=== PATIENT | female | born 1950 | race African-American/Black ===

== ENCOUNTER 2016-09-11 05:30 | Emergency (ER) | payer MEDICARE, OTHER ==
[2016-09-11 05:57] VITALS: BP 122/94
[2016-09-11 06:10] LABS: APPEARANCE,URINE CLEAR; BILIRUBIN,URINE NEGATIVE (NEGATIVE); GLUCOSE, URINE NEGATIVE (NEGATIVE); KETONES,URINE NEGATIVE (NEGATIVE); LEUKOCYTE ESTERASE,URINE NEGATIVE (NEGATIVE); NITRITE,URINE NEGATIVE (NEGATIVE); PROTEIN,URINE NEGATIVE (NEGATIVE); URINE SPECIFIC GRAVITY 1.005; UROBILINOGEN,URINE NEGATIVE mg/dL (<2.0)
[2016-09-11 06:15] LABS: ABSOLUTE BASOPHILS # (AUTO) 0.1 10^3/uL (0.0-0.2); ABSOLUTE EOSINOPHILS # (AUTO) 0.1 10^3/uL (0.0-0.6); ABSOLUTE LYMPHOCYTES (AUTO) 1.8 10^3/uL (0.5-4.7); ABSOLUTE MONOCYTES (AUTO) 0.6 10^3/uL (0.1-1.4); ABSOLUTE NEUT (AUTO) 4.9 10^3/uL (1.7-8.2); BASOPHILS % (AUTO) 0.9 % (0-2); EOSINOPHILS % (AUTO) 0.8 % (0-6); HEMATOCRIT 44.4 % (36.0-47.0); HEMOGLOBIN 14.8 g/dL (12.0-15.5); LYMPHOCYTES % (AUTO) 24.4 % (13-45); MEAN CORPUSCULAR HEMOGLOBIN 28.1 pg (27.0-33.4); MEAN CORPUSCULAR HGB CONC 33.3 g/dL (32.0-36.0); MEAN CORPUSCULAR VOLUME 84 fl (80-97); MONOCYTES % (AUTO) 8.2 % (3-13); RED BLOOD COUNT 5.28 10^6/uL (3.72-5.28); RED CELL DISTRIBUTION WIDTH 15.2 % (11.5-14.0); SEGMENTED NEUTROPHILS % (AUTO) 65.7 % (42-78); WHITE BLOOD COUNT 7.5 10^3/uL (4.0-10.5)
--- NOTE | 2016-09-11 06:17 | ER Document Report ---
ED General - General Chief Complaint: Headache Stated Complaint: HEADACHE TRAVEL OUTSIDE OF THE [place] IN LAST 30 DAYS: No - HPI Patient complains to provider of: head heaviness Notes: Patient coming in for evaluation of head heaviness ongoing for the last 6 months. According to nursing notes patient was very anxious upon her arrival pacing around the room. Upon my evaluation patient is resting comfortably lying on her left side asleep in the stretcher. Patient denies any trauma denies nausea vomiting blurred vision dizziness. Patient able to sit up in bed for examination. Denies fevers chills. Patient states chronic heaviness ongoing for the last 6 months. No change in her symptoms. She states that she has been compliant with her medications. - Related Data Allergies/Adverse Reactions: Sulfa (Sulfonamide Antibiotics) Allergy (Verified 08/11/16 11:28) Past Medical History - Social History Smoking Status: Unknown if Ever Smoked Family History: None, Reviewed & Not Pertinent - Past Medical History Cardiac Medical History: Reports: Hx Hypercholesterolemia, Hx Hypertension Pulmonary Medical History: Reports: Hx Asthma, Hx Bronchitis, Hx COPD Endocrine Medical History: Reports: Hx Diabetes Mellitus Type 2 Malignancy Medical History: Reports: Hx Breast Cancer GI Medical History: Reports: Hx Gastroesophageal Reflux Disease Musculoskeltal Medical History: Reports Hx Arthritis Psychiatric Medical History: Reports: Hx Anxiety, Hx Depression, Hx Schizophrenia Past Surgical History: Reports: Hx Breast Surgery - lumpectomy to left breast, Hx Cholecystectomy, Hx Hysterectomy, Hx Orthopedic Surgery - Immunizations Hx Diphtheria, Pertussis, Tetanus Vaccination: Yes Hx Pneumococcal Vaccination: 09/05/00 Review of Systems - Review of Systems Constitutional: No symptoms reported EENT: No symptoms reported Cardiovascular: No symptoms reported Respiratory: No symptoms reported Gastrointestinal: No symptoms reported Genitourinary: No symptoms reported Female Genitourinary: No symptoms reported Musculoskeletal: No symptoms reported Skin: No symptoms reported Hematologic/Lymphatic: No symptoms reported Neurological/Psychological: Headaches - Head heaviness -: Yes All other systems reviewed and negative Physical Exam - Vital signs Vitals: Temp Pulse Resp BP Pulse Ox 97.5 F 101 H 24 H 122/94 H 100 09/11/16 05:56 09/11/16 05:56 09/11/16 05:56 09/11/16 05:56 09/11/16 05:56 Interpretation: Normal - General General appearance: Appears well, Alert - HEENT Head: Normocephalic, Atraumatic Eyes: Normal Conjunctiva: Normal Cornea: Normal Extraocular movements intact: Yes Eyelashes: Normal Pupils: PERRL Anterior chamber: Normal Fundascopic: Normal Mouth/Lips: Normal Neck: Normal - Respiratory Respiratory status: No respiratory distress Chest status: Nontender Breath sounds: Normal Chest palpation: Normal - Cardiovascular Rhythm: Regular Heart sounds: Normal auscultation Murmur: No - Abdominal Inspection: Normal Distension: No distension Bowel sounds: Normal Tenderness: Nontender Organomegaly: No organomegaly - Back Back: Normal, Nontender - Extremities General upper extremity: Normal inspection, Nontender, Normal color, Normal ROM , Normal temperature General lower extremity: Normal inspection, Nontender, Normal color, Normal ROM , Normal temperature, Normal weight bearing. 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 This time patient has no emergent criteria. More likely patient will be discharged home. 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 The patient is neurologically intact. Given the extremely low risk of these diagnoses further testing and evaluation for these possibilities does not appear to be indicated at this time. The patient has been instructed to return if the symptoms worsen or change in any way.. - Vital Signs Vital signs: Temp Pulse Resp BP Pulse Ox 97.5 F 101 H 24 H 122/94 H 100 09/11/16 05:56 09/11/16 05:56 09/11/16 05:56 09/11/16 05:56 09/11/16 05:56 - Laboratory Result Diagrams: 09/11/16 05:45 09/11/16 05:45 Laboratory results interpreted by me: 09/11/16 09/11/16 09/11/16 05:45 05:45 05:46 RDW 15.2 H Glucose 134 H Urine Blood SMALL H Discharge - Discharge Clinical Impression: head heaviness Headache Qualifiers: Headache type: unspecified Headache chronicity pattern: unspecified pattern Intractability: not intractable Qualified Code(s): R51 - Headache Condition: Good Disposition: HOME, SELF-CARE Instructions: Headache ([facility]) Additional Instructions: Follow-up with your DrRomel for further evaluation. Please take your prescribe medications
[2016-09-11 06:20] LABS: ALANINE AMINOTRANSFERASE 28 U/L (9-52); ALBUMIN 4.2 g/dL (3.5-5.0); ALKALINE PHOSPHATASE 117 U/L (38-126); ANION GAP 9 (5-19); ASPARTATE AMINO TRANSFERASE 18 U/L (14-36); BILIRUBIN,TOTAL 0.6 mg/dL (0.2-1.3); BLOOD UREA NITROGEN 12 mg/dL (7-20); CALCIUM 9.9 mg/dL (8.4-10.2); CARBON DIOXIDE 27 mmol/L (22-30); CHLORIDE 106 mmol/L (98-107); GLUCOSE 134 mg/dL (75-110); POTASSIUM 4.7 mmol/L (3.6-5.0); SODIUM 142.3 mmol/L (137-145); TOTAL PROTEIN 6.8 g/dL (6.3-8.2)
[2016-09-11] MEDS ORDERED: HYDROXYZINE PAMOATE 25 MG CAPSULE #4 (ER DISP) PO SCH (07:45)
== END 2016-09-11 07:45 | disposition home or self-care (01) ==
LOC: ER 05:30
DX: R51 Headache (principal); E78.00 Pure hypercholesterolemia, unspecified; I10 Essential (primary) hypertension; J45.909 Unspecified asthma, uncomplicated; J44.9 Chronic obstructive pulmonary disease, unspecified; E11.9 Type 2 diabetes mellitus without complications; K21.9 Gastro-esophageal reflux disease without esophagitis; Z85.3 Personal history of malignant neoplasm of breast; Z88.2 Allergy status to sulfonamides; Z90.710 Acquired absence of both cervix and uterus; Z90.49 Acquired absence of other specified parts of digestive tract
CPT/HCPCS: 99284; 36415; 85025; 80053; 81001; J3490

== ENCOUNTER 2016-09-18 12:47 | Emergency (ER) | payer MEDICARE, OTHER ==
[2016-09-18] MEDS ORDERED: LORAZEPAM INJ 2 MG/1 ML VIAL IV ONE (13:03)
--- NOTE | 2016-09-18 13:03 | ER Document Report ---
ED General - General Stated Complaint: ANXIETY Time seen by provider: 13:03 Mode of Arrival: Medic Information source: Patient Notes: 66-year-old female with a history of schizophrenia presents to the emergency room complaining of anxiety and diarrhea. TRAVEL OUTSIDE OF THE [place] IN LAST 30 DAYS: No - HPI Onset: Yesterday Onset/Duration: Gradual Quality of pain: No pain Severity: None Pain Level: Denies Associated symptoms: denies: Chills, Nonproductive cough, Productive cough, Fever, Shortness of breath Exacerbated by: Denies Relieved by: Denies Similar symptoms previously: No Recently seen / treated by doctor: No - Related Data Allergies/Adverse Reactions: Sulfa (Sulfonamide Antibiotics) Allergy (Verified 08/11/16 11:28) Past Medical History - General Information source: Patient - Social History Smoking Status: Never Smoker Cigarette use (# per day): No Chew tobacco use (# tins/day): No Frequency of alcohol use: None Drug Abuse: None Lives with: Family Family History: None, Reviewed & Not Pertinent Patient has suicidal ideation: No Patient has homicidal ideation: No - Past Medical History Cardiac Medical History: Reports: Hx Hypercholesterolemia, Hx Hypertension Pulmonary Medical History: Reports: Hx Asthma, Hx Bronchitis, Hx COPD Endocrine Medical History: Reports: Hx Diabetes Mellitus Type 2 Malignancy Medical History: Reports: Hx Breast Cancer GI Medical History: Reports: Hx Gastroesophageal Reflux Disease Musculoskeltal Medical History: Reports Hx Arthritis Psychiatric Medical History: Reports: Hx Anxiety, Hx Depression, Hx Schizophrenia Past Surgical History: Reports: Hx Breast Surgery - lumpectomy to left breast, Hx Cholecystectomy, Hx Hysterectomy, Hx Orthopedic Surgery - Immunizations Hx Diphtheria, Pertussis, Tetanus Vaccination: Yes Hx Pneumococcal Vaccination: 09/05/00 Review of Systems - Review of Systems Constitutional: denies: Chills, Fever EENT: No symptoms reported Cardiovascular: No symptoms reported Respiratory: No symptoms reported Gastrointestinal: No symptoms reported Genitourinary: No symptoms reported Female Genitourinary: No symptoms reported Musculoskeletal: No symptoms reported Skin: No symptoms reported Hematologic/Lymphatic: No symptoms reported Neurological/Psychological: See HPI Physical Exam - Vital signs Vitals: Temp Pulse Resp BP Pulse Ox 97.5 F 101 H 14 191/89 H 98 09/18/16 13:05 09/18/16 13:05 09/18/16 13:05 09/18/16 13:05 09/18/16 13:05 Notes: Physical exam: GENERAL: HEAD: Atraumatic, normocephalic. EYES: Pupils equal round and reactive to light, extraocular movements intact, sclera anicteric, conjunctiva are normal. ENT: TMs normal, nares patent, oropharynx clear without exudates. Moist mucous membranes. NECK: Normal range of motion, supple without lymphadenopathy or JVD. LUNGS: Breath sounds clear to auscultation bilaterally and equal. No wheezes rales or rhonchi. HEART: Regular rate and rhythm without murmurs, rubs or gallops. ABDOMEN: Soft, nontender, normoactive bowel sounds. No guarding, no rebound. No masses appreciated. EXTREMITIES: Normal range of motion, no pitting or edema. No clubbing or cyanosis. NEUROLOGICAL: Cranial nerves II through XII grossly intact. Normal speech, normal gait. PSYCH: Normal mood, normal affect. SKIN: Warm, Dry, normal turgor, no rashes or lesions noted. Course - Re-evaluation Re-evalutation: 09/18/16 20:12 Note: I reviewed the chart and she has had some hyponatremia in the past. Patient looks fine. I did give her some fluids and some Vistaril (which she wanted for her restless leg syndrome). She has been ambulating around the emergency room and would like to go. - Vital Signs Vital signs: Temp Pulse Resp BP Pulse Ox 98.4 F 109 H 18 119/90 H 100 09/18/16 17:37 09/18/16 17:37 09/18/16 17:37 09/18/16 17:37 09/18/16 17:37 - Laboratory Result Diagrams: 09/18/16 13:22 09/18/16 13:22 Laboratory results interpreted by me: 09/18/16 09/18/16 13:22 13:22 RDW 15.1 H Seg Neutrophils % 80.9 H Lymphocytes % 11.1 L Absolute Neutrophils 8.3 H Sodium 125.2 L Potassium 3.4 L Chloride 92 L Total Protein 6.2 L Discharge - Discharge Clinical Impression: anxiety, pre-hypertension Condition: Stable Disposition: HOME, SELF-CARE Instructions: Anxiety ([facility]) Additional Instructions: Recommendations: Rest, drink plenty of fluids. Follow-up with primary care doctor Continue current medicines Follow-up with your psychiatrist Forms: Elevated Blood Pressure Referrals: MAHSA SAMPSON DO [NO LOCAL MD] - Follow up in 3-5 days (For repeat blood pressure check)
[2016-09-18 13:39] LABS: ABSOLUTE BASOPHILS # (AUTO) 0.1 10^3/uL (0.0-0.2); ABSOLUTE LYMPHOCYTES (AUTO) 1.1 10^3/uL (0.5-4.7); ABSOLUTE MONOCYTES (AUTO) 0.7 10^3/uL (0.1-1.4); ABSOLUTE NEUT (AUTO) 8.3 10^3/uL (1.7-8.2); BASOPHILS % (AUTO) 0.7 % (0-2); EOSINOPHILS % (AUTO) 0.2 % (0-6); HEMATOCRIT 41.4 % (36.0-47.0); HEMOGLOBIN 13.5 g/dL (12.0-15.5); HGB HCT DIFFERENCE -0.9; LYMPHOCYTES % (AUTO) 11.1 % (13-45); MEAN CORPUSCULAR HEMOGLOBIN 27.9 pg (27.0-33.4); MEAN CORPUSCULAR HGB CONC 32.6 g/dL (32.0-36.0); MEAN CORPUSCULAR VOLUME 85 fl (80-97); MONOCYTES % (AUTO) 7.1 % (3-13); RED BLOOD COUNT 4.85 10^6/uL (3.72-5.28); RED CELL DISTRIBUTION WIDTH 15.1 % (11.5-14.0); SEGMENTED NEUTROPHILS % (AUTO) 80.9 % (42-78); WHITE BLOOD COUNT 10.3 10^3/uL (4.0-10.5)
[2016-09-18 14:05] LABS: ALANINE AMINOTRANSFERASE 26 U/L (9-52); ALBUMIN 3.5 g/dL (3.5-5.0); ALKALINE PHOSPHATASE 114 U/L (38-126); ANION GAP 9 (5-19); ASPARTATE AMINO TRANSFERASE 26 U/L (14-36); BILIRUBIN,TOTAL 0.3 mg/dL (0.2-1.3); BLOOD UREA NITROGEN 7 mg/dL (7-20); CALCIUM 8.7 mg/dL (8.4-10.2); CARBON DIOXIDE 24 mmol/L (22-30); CHLORIDE 92 mmol/L (98-107); CREATININE RESULT 0.57 mg/dL (0.52-1.25); GLUCOSE 105 mg/dL (75-110); POTASSIUM 3.4 mmol/L (3.6-5.0); SODIUM 125.2 mmol/L (137-145); TOTAL PROTEIN 6.2 g/dL (6.3-8.2)
[2016-09-18] MEDS ORDERED: HYDROXYZINE HCL INJ 50 MG/1 ML VIAL IM ONE (14:34)
[2016-09-18] MEDS ORDERED: NORMAL SALINE 1000 ML 1,000 ML IV PRN (14:36)
[2016-09-18] MEDS ORDERED: POTASSIUM CHLORIDE 20 MEQ/15 ML UDCUP PO ONE (14:36)
[2016-09-18 19:20] VITALS: BP 119/90
== END 2016-09-18 17:40 | disposition home or self-care (01) ==
LOC: ER 12:47
DX: F41.9 Anxiety disorder, unspecified (principal); I10 Essential (primary) hypertension; E78.00 Pure hypercholesterolemia, unspecified; J45.909 Unspecified asthma, uncomplicated; J44.9 Chronic obstructive pulmonary disease, unspecified; E11.9 Type 2 diabetes mellitus without complications; Z85.3 Personal history of malignant neoplasm of breast; K21.9 Gastro-esophageal reflux disease without esophagitis; Z88.2 Allergy status to sulfonamides; Z90.49 Acquired absence of other specified parts of digestive tract; Z90.710 Acquired absence of both cervix and uterus
CPT/HCPCS: 99283; 96372; 96361; 96374; 36415; 85025; 80053; J3490; J2060; A9270; J7030

== ENCOUNTER 2016-09-23 19:04 | Emergency (ER) | payer MEDICARE, OTHER ==
[2016-09-23] MEDS ORDERED: ALBUTEROL SULFATE 0.083% NEB 2.5 MG/3 ML AMPUL NEB ONE (19:20)
[2016-09-23 20:03] LABS: ABSOLUTE BASOPHILS # (AUTO) 0.1 10^3/uL (0.0-0.2); ABSOLUTE LYMPHOCYTES (AUTO) 0.8 10^3/uL (0.5-4.7); ABSOLUTE MONOCYTES (AUTO) 0.5 10^3/uL (0.1-1.4); ABSOLUTE NEUT (AUTO) 9.3 10^3/uL (1.7-8.2); BASOPHILS % (AUTO) 0.5 % (0-2); EOSINOPHILS % (AUTO) 0.4 % (0-6); HEMATOCRIT 42.2 % (36.0-47.0); HEMOGLOBIN 13.3 g/dL (12.0-15.5); HGB HCT DIFFERENCE -2.3; LYMPHOCYTES % (AUTO) 7.3 % (13-45); MEAN CORPUSCULAR HEMOGLOBIN 27.2 pg (27.0-33.4); MEAN CORPUSCULAR HGB CONC 31.5 g/dL (32.0-36.0); MEAN CORPUSCULAR VOLUME 87 fl (80-97); MONOCYTES % (AUTO) 4.6 % (3-13); RED BLOOD COUNT 4.88 10^6/uL (3.72-5.28); RED CELL DISTRIBUTION WIDTH 14.7 % (11.5-14.0); SEGMENTED NEUTROPHILS % (AUTO) 87.2 % (42-78); WHITE BLOOD COUNT 10.6 10^3/uL (4.0-10.5)
[2016-09-23 20:29] LABS: ALANINE AMINOTRANSFERASE 34 U/L (9-52); ALBUMIN 3.7 g/dL (3.5-5.0); ALKALINE PHOSPHATASE 100 U/L (38-126); ANION GAP 12 (5-19); ASPARTATE AMINO TRANSFERASE 24 U/L (14-36); BILIRUBIN,TOTAL 0.4 mg/dL (0.2-1.3); BLOOD UREA NITROGEN 11 mg/dL (7-20); CALCIUM 8.4 mg/dL (8.4-10.2); CARBON DIOXIDE 22 mmol/L (22-30); CHLORIDE 97 mmol/L (98-107); CREATINE KINASE 206 U/L (30-135); CREATININE RESULT 0.63 mg/dL (0.52-1.25); GLUCOSE 139 mg/dL (75-110); POTASSIUM 3.6 mmol/L (3.6-5.0); SODIUM 130.9 mmol/L (137-145); TOTAL PROTEIN 5.7 g/dL (6.3-8.2)
[2016-09-23 20:34] LABS: CREATINE KINASE MB 1.6 ng/mL (<4.55); TROPONIN I 0.021 ng/mL
[2016-09-23 20:48] LABS: APPEARANCE,URINE CLEAR; BILIRUBIN,URINE NEGATIVE (NEGATIVE); GLUCOSE, URINE NEGATIVE (NEGATIVE); KETONES,URINE NEGATIVE (NEGATIVE); LEUKOCYTE ESTERASE,URINE NEGATIVE (NEGATIVE); NITRITE,URINE NEGATIVE (NEGATIVE); PROTEIN,URINE NEGATIVE (NEGATIVE); URINE SPECIFIC GRAVITY 1.002; UROBILINOGEN,URINE NEGATIVE mg/dL (<2.0)
[2016-09-23 20:57] LABS: URINE BARBITURATES SCREEN NEGATIVE; URINE METHADONE SCREEN NEGATIVE; URINE PHENCYCLIDINE SCREEN NEGATIVE
[2016-09-23 21:07] LABS: VENOUS BLOOD BASE EXCESS 0.6 mmol/L; VENOUS BLOOD HCO3 27.4 mmol/L (20-32); VENOUS BLOOD PCO2 52.3 mmHg (35-63); VENOUS BLOOD PH 7.34 (7.30-7.42)
[2016-09-23 22:02] VITALS: BP 111/90
--- NOTE | 2016-09-23 22:24 | ER Document Report ---
ED General - General Chief Complaint: Respiratory Distress Stated Complaint: RESPIRATORY DISTRESS TRAVEL OUTSIDE OF THE [place] IN LAST 30 DAYS: No - HPI Patient complains to provider of: COPD exacerbation Notes: Patient was found by EMS in some respiratory distress mild/moderate with SPO2 of 84 EMS house was heavily filled with smoke patient does admit to smoking very heavily today. Patient does have a history of COPD. Patient was given 2 nebulizer treatments prior to arrival and it the steroids upon her arrival here patient's respiratory rate oxygenation were within normal limits. Patient was in no signs of her story stress able to lie on her back in a comfortable position. Patient denies any recent travel denies any pain in her head chest abdomen. Denies any fevers chills nausea vomiting. Patient states feeling much better after breathing treatments given by EMS. - Related Data Allergies/Adverse Reactions: Sulfa (Sulfonamide Antibiotics) Allergy (Verified 08/11/16 11:28) Past Medical History - Social History Smoking Status: Current Every Day Smoker Family History: None, Reviewed & Not Pertinent - Past Medical History Cardiac Medical History: Reports: Hx Hypercholesterolemia, Hx Hypertension Pulmonary Medical History: Reports: Hx Asthma, Hx Bronchitis, Hx COPD Endocrine Medical History: Reports: Hx Diabetes Mellitus Type 2 Malignancy Medical History: Reports: Hx Breast Cancer GI Medical History: Reports: Hx Gastroesophageal Reflux Disease Musculoskeltal Medical History: Reports Hx Arthritis Psychiatric Medical History: Reports: Hx Anxiety, Hx Depression, Hx Schizophrenia Past Surgical History: Reports: Hx Breast Surgery - lumpectomy to left breast, Hx Cholecystectomy, Hx Hysterectomy, Hx Orthopedic Surgery - Immunizations Hx Diphtheria, Pertussis, Tetanus Vaccination: Yes Hx Pneumococcal Vaccination: 09/05/00 Review of Systems - Review of Systems Constitutional: No symptoms reported EENT: No symptoms reported Cardiovascular: No symptoms reported Respiratory: Cough, Short of breath, Wheezing Gastrointestinal: No symptoms reported Genitourinary: No symptoms reported Female Genitourinary: No symptoms reported Musculoskeletal: No symptoms reported Skin: No symptoms reported Hematologic/Lymphatic: No symptoms reported Neurological/Psychological: No symptoms reported -: Yes All other systems reviewed and negative Physical Exam - Vital signs Vitals: Resp Pulse Ox 21 H 96 09/23/16 19:34 09/23/16 19:34 Interpretation: Normal - General General appearance: Appears well, Alert - HEENT Head: Normocephalic, Atraumatic Eyes: Normal Pupils: PERRL - Respiratory Respiratory status: No respiratory distress Chest status: Nontender Breath sounds: Rhonchi, Wheezing Chest palpation: Normal - Cardiovascular Rhythm: Regular Heart sounds: Normal auscultation Murmur: No - Abdominal Inspection: Normal Distension: No distension Bowel sounds: Normal Tenderness: Nontender Organomegaly: No organomegaly - Back Back: Normal, Nontender - Extremities General upper extremity: Normal inspection, Nontender, Normal color, Normal ROM , Normal temperature General lower extremity: Normal inspection, Nontender, Normal color, Normal ROM , Normal temperature, Normal weight bearing. No: Misty's sign - Neurological Neuro grossly intact: Yes Cognition: Normal Orientation: AAOx4 Aurelio Coma Scale Eye Opening: Spontaneous Aurelio Coma Scale Verbal: Oriented Waterflow Coma Scale Motor: Obeys Commands Aurelio Coma Scale Total: 15 Speech: Normal Motor strength normal: LUE, RUE, LLE, RLE Sensory: Normal - Psychological Associated symptoms: Normal affect, Normal mood - Skin Skin Temperature: Warm Skin Moisture: Dry Skin Color: Normal Course - Re-evaluation Re-evalutation: 09/23/16 23:12 Patient was evaluated here in the ER. No critical etiology seen patient's never had any further hypoxia patient was ambulated around the ER with no signs of hypoxia no more story rate. At this time patient has been observed some period time did not fill patient be admitted patient agrees to plan will be discharged on the discharge home bronchodilators and prednisone. Patient's follow-up with her primary care physician patient was encouraged to stop smoking. - Vital Signs Vital signs: Temp Pulse Resp BP Pulse Ox 98.4 F 97 22 H 111/90 H 94 09/23/16 22:24 09/23/16 22:24 09/23/16 22:01 09/23/16 22:01 09/23/16 22:24 - Laboratory Result Diagrams: 09/23/16 19:47 09/23/16 19:47 Laboratory results interpreted by me: 09/23/16 09/23/16 09/23/16 19:47 19:47 20:15 WBC 10.6 H MCHC 31.5 L RDW 14.7 H Seg Neutrophils % 87.2 H Lymphocytes % 7.3 L Absolute Neutrophils 9.3 H Sodium 130.9 L Chloride 97 L Glucose 139 H Creatine Kinase 206 H Total Protein 5.7 L Urine Blood SMALL H Discharge - Discharge Clinical Impression: Tobacco abuse COPD (chronic obstructive pulmonary disease) Qualifiers: Chronic bronchitis type: unspecified Condition: Good Disposition: HOME, SELF-CARE Instructions: Chronic Obstructive Lung Disease ([facility]) Additional Instructions: Take medication as prescribed. Return to ER symptoms worsen. Prescriptions: Albuterol Sulfate [Proair HFA Inhalation Aerosol 8.5 gm MDI] 2 puff IH Q4H PRN # 1 mdi PRN Reason: Prednisone [Deltasone 20 mg Tablet] 60 mg PO DAILY 5 Days Forms: Smoking Cessation Education, Return to Work
--- NOTE | 2016-09-24 08:12 | EKG REPORT ---
SEVERITY:- ABNORMAL ECG - SINUS TACHYCARDIA ATRIAL PREMATURE COMPLEX PROBABLE LEFT ATRIAL ABNORMALITY LEFT ANTERIOR FASCICULAR BLOCK : Confirmed by: Jorge Alberto Barbosa MD 24-Sep-2016 08:11:25
== END 2016-09-23 22:34 | disposition home or self-care (01) ==
LOC: ER 19:04
DX: J44.9 Chronic obstructive pulmonary disease, unspecified (principal); F17.210 Nicotine dependence, cigarettes, uncomplicated; E78.00 Pure hypercholesterolemia, unspecified; I10 Essential (primary) hypertension; J45.909 Unspecified asthma, uncomplicated; E11.9 Type 2 diabetes mellitus without complications; K21.9 Gastro-esophageal reflux disease without esophagitis; Z85.3 Personal history of malignant neoplasm of breast; Z88.2 Allergy status to sulfonamides; Z90.49 Acquired absence of other specified parts of digestive tract; Z90.710 Acquired absence of both cervix and uterus
CPT/HCPCS: 93005; 94640; 99285; 36415; 82553; 82550; 85025; 80053; 81001; 84484; 80307; 82803; 71010; 93010; A9270

== ENCOUNTER 2016-11-22 14:38 | Emergency (ER) | payer MEDICARE, OTHER ==
--- NOTE | 2016-11-22 14:49 | ER Document Report ---
ED Medical Screen (RME) - General Stated Complaint: BREATHING PROBLEMS Time seen by provider: 14:47 Mode of Arrival: Medic Information source: Patient Notes: 66-year-old female presents to ED via EMS came to her for shortness of breath started after she smoked cigarettes temporary short of breath and wheezing. Gave her a breathing treatment as she usually does and he did not let complete the treatment or start an IV or do an EKG. She is to Make and wheezing according to EMS. I have greeted and performed a rapid initial assessment of this patient. A comprehensive ED assessment and evaluation of the patient, analysis of test results and completion of medical decision making process will be conducted by an additional ED providers. TRAVEL OUTSIDE OF THE [place] IN LAST 30 DAYS: No - Related Data Allergies/Adverse Reactions: Sulfa (Sulfonamide Antibiotics) Allergy (Verified 11/22/16 14:55) Past Medical History - Past Medical History Cardiac Medical History: Reports: Hx Hypercholesterolemia, Hx Hypertension Pulmonary Medical History: Reports: Hx Asthma, Hx Bronchitis, Hx COPD Endocrine Medical History: Reports: Hx Diabetes Mellitus Type 2 Malignancy Medical History: Reports: Hx Breast Cancer GI Medical History: Reports: Hx Gastroesophageal Reflux Disease Musculoskeltal Medical History: Reports Hx Arthritis Psychiatric Medical History: Reports: Hx Anxiety, Hx Depression, Hx Schizophrenia Past Surgical History: Reports: Hx Breast Surgery - lumpectomy to left breast, Hx Cholecystectomy, Hx Hysterectomy, Hx Orthopedic Surgery - Immunizations Hx Diphtheria, Pertussis, Tetanus Vaccination: Yes Physical Exam - Vital signs Vitals: Temp Pulse Resp BP Pulse Ox 97.7 F 110 H 28 H 149/103 H 93 11/22/16 14:53 11/22/16 14:53 11/22/16 14:53 11/22/16 14:53 11/22/16 14:53 Course - Vital Signs Vital signs: Temp Pulse Resp BP Pulse Ox 97.7 F 110 H 28 H 149/103 H 93 11/22/16 14:53 11/22/16 14:53 11/22/16 14:53 11/22/16 14:53 11/22/16 14:53 Doctor's Discharge - Discharge Disposition: AGAINST MEDICAL ADVICE
[2016-11-22 14:54] VITALS: BP 149/103
[2016-11-22] MEDS ORDERED: PREDNISONE 20 MG TABLET PO ONE (14:54)
[2016-11-22] MEDS: ALBUTEROL SULFATE 0.083% NEB 2.5 MG/3 ML AMPUL NEB SCH ×2 (15:15→15:32)
== END 2016-11-22 15:55 | disposition left against medical advice (07) ==
LOC: ER 14:38
DX: Z53.9 Procedure and treatment not carried out, unspecified reason (principal); R06.02 Shortness of breath; E78.00 Pure hypercholesterolemia, unspecified; I10 Essential (primary) hypertension; J44.9 Chronic obstructive pulmonary disease, unspecified; E11.9 Type 2 diabetes mellitus without complications; K21.9 Gastro-esophageal reflux disease without esophagitis; Z88.2 Allergy status to sulfonamides; Z85.3 Personal history of malignant neoplasm of breast; Z90.49 Acquired absence of other specified parts of digestive tract; Z90.710 Acquired absence of both cervix and uterus
CPT/HCPCS: 99281; A9270 ×2; J7512

== ENCOUNTER 2016-11-23 03:03 | Inpatient (IN) | payer MEDICARE, OTHER ==
[2016-11-23] MEDS ORDERED: ALPRAZOLAM 0.5 MG TABLET PO ONE (04:12)
[2016-11-23 05:06] LABS: ALANINE AMINOTRANSFERASE 38 U/L (9-52); ALBUMIN 4.6 g/dL (3.5-5.0); ALKALINE PHOSPHATASE 150 U/L (38-126); ANION GAP 14 (5-19); ASPARTATE AMINO TRANSFERASE 27 U/L (14-36); BILIRUBIN,DIRECT 0.1 mg/dL (0.0-0.4); BILIRUBIN,TOTAL 0.6 mg/dL (0.2-1.3); BLOOD UREA NITROGEN 9 mg/dL (7-20); CALCIUM 10.2 mg/dL (8.4-10.2); CARBON DIOXIDE 27 mmol/L (22-30); CHLORIDE 96 mmol/L (98-107); CREATININE RESULT 0.67 mg/dL (0.52-1.25); GLUCOSE 126 mg/dL (75-110); MAGNESIUM 1.5 mg/dL (1.6-2.3); POTASSIUM 3.5 mmol/L (3.6-5.0); SODIUM 136.9 mmol/L (137-145); TOTAL PROTEIN 7.3 g/dL (6.3-8.2)
[2016-11-23 05:10] LABS: HEMATOCRIT 43.7 % (36.0-47.0); HEMOGLOBIN 14.3 g/dL (12.0-15.5); HGB HCT DIFFERENCE -0.8; MEAN CORPUSCULAR HGB CONC 32.6 g/dL (32.0-36.0); MEAN CORPUSCULAR VOLUME 83 fl (80-97); RED BLOOD COUNT 5.28 10^6/uL (3.72-5.28); RED CELL DISTRIBUTION WIDTH 14.7 % (11.5-14.0); WHITE BLOOD COUNT 11.2 10^3/uL (4.0-10.5)
[2016-11-23 05:18] LABS: TROPONIN I < 0.012 ng/mL
--- NOTE | 2016-11-23 05:20 | ER Document Report ---
ED General - General Chief Complaint: Shortness Of Breath Stated Complaint: SHORTNESS OF BREATH Information source: Patient TRAVEL OUTSIDE OF THE [place] IN LAST 30 DAYS: No - HPI Notes: Patient presents with a history of chronic COPD and schizophrenia stating she's had progressive dyspnea and orthopnea over the last 2-3 months with increasing lower extremity swelling. She denies any chest pain. She was seen earlier yesterday was given a nebulizer treatment and 60 mg of prednisone but left prior to being fully evaluated. Patient has a previous echocardiogram from 2010 showed left ventricular ejection fraction 55% with left ventricular diastolic dysfunction. Patient has no known history of CHF. - Related Data Allergies/Adverse Reactions: Sulfa (Sulfonamide Antibiotics) Allergy (Verified 11/22/16 14:55) Past Medical History - General Information source: Patient - Social History Smoking Status: Current Every Day Smoker Cigarette use (# per day): Yes Smoking Education Provided: Yes Frequency of alcohol use: None Drug Abuse: None Family History: None, Reviewed & Not Pertinent - Past Medical History Cardiac Medical History: Reports: Hx Hypercholesterolemia, Hx Hypertension Pulmonary Medical History: Reports: Hx Asthma, Hx Bronchitis, Hx COPD Neurological Medical History: Endocrine Medical History: Reports: Hx Diabetes Mellitus Type 2 Renal/ Medical History: Denies: Hx Peritoneal Dialysis Malignancy Medical History: Reports: Hx Breast Cancer GI Medical History: Reports: Hx Gastroesophageal Reflux Disease Musculoskeltal Medical History: Reports Hx Arthritis Psychiatric Medical History: Reports: Hx Anxiety, Hx Depression, Hx Schizophrenia Infectious Medical History: Past Surgical History: Reports: Hx Breast Surgery - lumpectomy to left breast, Hx Cholecystectomy, Hx Hysterectomy, Hx Orthopedic Surgery - Immunizations Hx Diphtheria, Pertussis, Tetanus Vaccination: Yes Hx Pneumococcal Vaccination: 09/05/00 Review of Systems - Review of Systems Notes: REVIEW OF SYSTEMS: CONSTITUTIONAL : Denies fever, chills, or sweats. Denies recent illness. EENT: Denies eye, ear, throat, or mouth pain or symptoms. Denies nasal or sinus congestion or discharge. Denies throat, tongue, or mouth swelling or difficulty swallowing. CARDIOVASCULAR: Denies chest pain. Denies palpitations or racing or irregular heart beat. Patient reports ankle edema RESPIRATORY: Denies cough, cold, or chest congestion. Patient reports dyspnea with some wheezing. GASTROINTESTINAL: Denies abdominal pain or distention. Denies nausea, vomiting , or diarrhea. Denies blood in vomitus, stools, or per rectum. Denies black, tarry stools. Denies constipation. GENITOURINARY: Denies difficulty urinating, painful urination, burning, frequency, blood in urine, or discharge. FEMALE GENITOURINARY: Denies vaginal bleeding, heavy or abnormal periods, irregular periods. Denies vaginal discharge or odor. MUSCULOSKELETAL: Denies back or neck pain or stiffness. Denies joint pain or swelling. SKIN: Denies rash, lesions or sores. HEMATOLOGIC : Denies easy bruising or bleeding. LYMPHATIC: Denies swollen, enlarged glands. NEUROLOGICAL: Denies confusion or altered mental status. Denies passing out or loss of consciousness. Denies dizziness or lightheadedness. Denies headache. Denies weakness or paralysis or loss of use of either side. Denies problems with gait or speech. Denies sensory loss, numbness, or tingling. Denies seizures. PSYCHIATRIC: Denies anxiety or stress. Denies depression, suicidal ideation, or homicidal ideation. ALL OTHER SYSTEMS REVIEWED AND NEGATIVE. Dictation was performed using [employer] voice recognition software Physical Exam - Vital signs Vitals: Pulse Ox 96 11/23/16 04:20 - Notes Notes: PHYSICAL EXAMINATION: GENERAL: Well-appearing, well-nourished and in no acute distress. HEAD: Atraumatic, normocephalic. EYES: Pupils equal round and reactive to light, extraocular movements intact, conjunctiva are normal. ENT: Nares patent, oropharynx clear without exudates. Moist mucous membranes. NECK: Normal range of motion, supple without lymphadenopathy LUNGS: Coarse breath sounds appreciated bilaterally. There is very minimal wheeze. There are mid lung field rales noted. HEART: Regular rate and rhythm without murmurs ABDOMEN: Soft, nontender, nondistended abdomen. No guarding, no rebound. No masses appreciated. Female : deferred Musculoskeletal: Normal range of motion, No cyanosis. 2+ bilateral lower extremity pitting edema noted. No palpable cord. Negative Homans. NEUROLOGICAL: Cranial nerves grossly intact. Normal speech, normal gait. Normal sensory, motor exams PSYCH: Normal mood, normal affect. SKIN: Warm, Dry, normal turgor, no rashes or lesions noted. Course - Re-evaluation Re-evalutation: 11/23/16 06:41 Patient previously had received prednisone. The patient was given a DuoNeb without much improvement. The patient on oxygen would have saturations in the mid 90s with 2 L nasal cannula, but when taken off oxygen she would float down to 91-92% saturations and would become to 24-26 rate. The patient initially requested to leave after her breathing treatment, and she was encouraged to stay. On several occasions again she requested to leave. I discussed with the patient that there was concern for new onset congestive heart failure and that she would not improve, and she was in agreement with staying for further evaluation and care. Chest x-ray as interpreted by me did show some mild cephalization but no significant cardiomegaly. As compared to previous chest x-ray the cephalization and mild evidence for congestive heart failure was notable. Patient's BNP went up from 40 in 2013 to today's value greater than 3000. Patient was given Lasix 40 mg IV and was placed up on 1 inch of nitroglycerin paste. Discussion was undertaken with the hospitalist Dr. Lemos, and he agreed to admit the patient for further evaluation and management and care. Critical care time not counting billable procedures is 42 minutes. 11/23/16 06:44 - Vital Signs Vital signs: Temp Pulse Resp BP Pulse Ox 96 11/23/16 04:20 - Laboratory Result Diagrams: 11/23/16 04:37 11/23/16 04:37 Laboratory results interpreted by me: 11/23/16 11/23/16 11/23/16 04:37 04:37 04:37 WBC 11.2 H RDW 14.7 H Seg Neuts % (Manual) 90 H Band Neutrophils % 2 L Lymphocytes % (Manual) 6 L Monocytes % (Manual) 2 L Abs Neuts (Manual) 10.3 H Sodium 136.9 L Potassium 3.5 L Chloride 96 L Glucose 126 H Magnesium 1.5 L Alkaline Phosphatase 150 H NT-Pro-B Natriuret Pep 3130 H - EKG Interpretation by Me EKG shows normal: Sinus rhythm Additional EKG results interpreted by me: 11/23/16 05:19 EKG as interpreted by me showed sinus tachycardia heart rate of 126. There is no gross evidence for acute [place] or ischemia identified. There is no change from previous EKG reviewed from 09/23/16. Discharge - Discharge Clinical Impression: COPD (chronic obstructive pulmonary disease) CHF (congestive heart failure) Qualifiers: Congestive heart failure type: unspecified congestive heart failure type Congestive heart failure chronicity: acute Qualified Code(s): I50.9 - Heart failure, unspecified Disposition: ADMITTED INPATIENT Admitting Provider: Hospitalist Unit Admitted: Telemetry
[2016-11-23 05:26] LABS: BAND NEUTROPHILS % (MANUAL) 2 % (3-5); BASOPHILS % (MANUAL) 0 % (0-2); EOSINOPHILS % (MANUAL) 0 % (0-6); LYMPHOCYTES % (MANUAL) 6 % (13-45); TOTAL CELLS COUNTED 100
[2016-11-23 05:27] LABS: ANISOCYTOSIS SLIGHT; POIKILOCYTOSIS SLIGHT; TOXIC GRANULATION SLIGHT; TOXIC VACUOLATION PRESENT
[2016-11-23] MEDS ORDERED: NITROGLYCERIN 2% OINTMENT 1 GM PACKET TP ONE (05:42)
[2016-11-23] MEDS ORDERED: FUROSEMIDE INJ/PF 40 MG/4 ML SDV IV ONE (05:42)
[2016-11-23] MEDS ORDERED: POTASSIUM CHLORIDE 10 MEQ TABLET.SA PO ONE (05:48)
[2016-11-23] MEDS ORDERED: MAGNESIUM OXIDE 400 MG TABLET PO ONE (05:49)
[2016-11-23] MEDS ORDERED: OLANZAPINE INJ/PF 10 MG SDV IM ONE (06:13)
[2016-11-23] MEDS ORDERED: ACETAMINOPHEN 325 MG TABLET PO PRN (06:34)
[2016-11-23] MEDS ORDERED: HYDRALAZINE HCL INJ/PF 20 MG/1 ML SDV IV PRN (06:34)
[2016-11-23] MEDS ORDERED: GLUCAGON,HUMAN RECOMB 1 MG INJ IM PRN (06:35)
[2016-11-23] MEDS ORDERED: DEXTROSE 50%-WATER 25 GM/50 ML DISP.SYRIN IV PRN ×2 (06:35)
[2016-11-23] MEDS ORDERED: INSULIN LISPRO 100 UNIT/ML 3 ML VIAL SUBCUT PRN (06:35)
[2016-11-23] MEDS ORDERED: DEXTROSE 40% GEL 15 GM TUBE PO PRN ×2 (06:35)
[2016-11-23] MEDS ORDERED: NICOTINE 14 MG/24 HR PATCH.TD24 TD ONE (06:39)
[2016-11-23] MEDS: IPRATROPIUM/ALBUTEROL 0.5-2.5 MG/3 ML AMPUL NEB SCH ×2 (07:42→15:21)
--- NOTE | 2016-11-23 08:11 | EKG REPORT ---
SEVERITY:- ABNORMAL ECG - SINUS TACHYCARDIA LEFT ANTERIOR FASCICULAR BLOCK NONSPECIFIC LATERAL ST-T CHANGES. : Confirmed by: Jorge Alberto Barbosa MD 23-Nov-2016 08:10:26
[2016-11-23 08:50] LABS: CREATINE KINASE MB 2.23 ng/mL (<4.55)
[2016-11-23 08:57] LABS: TROPONIN I < 0.012 ng/mL
[2016-11-23] MEDS ORDERED: ENALAPRIL MALEATE 2.5 MG TABLET PO SCH (10:00)
[2016-11-23] MEDS ORDERED: ARIPIPRAZOLE 5 MG TABLET PO SCH (10:00)
[2016-11-23] MEDS: ALBUTEROL SULFATE 0.083% NEB 2.5 MG/3 ML AMPUL NEB PRN (11:13)
[2016-11-23] MEDS: PREDNISONE 20 MG TABLET PO SCH (13:58)
[2016-11-23] MEDS: POTASSIUM CHLORIDE 10 MEQ TABLET.SA PO SCH ×2 (13:58→22:37)
[2016-11-23] MEDS: DOCUSATE SODIUM 100 MG CAPSULE PO SCH (13:59)
[2016-11-23] MEDS: DOXYCYCLINE HYCLATE 100 MG TABLET PO SCH ×2 (13:59→22:37)
[2016-11-23] MEDS: FUROSEMIDE INJ/PF 20 MG/2 ML SDV IV SCH ×2 (14:00→22:32)
[2016-11-23] MEDS: FLUTICASONE NASAL SPRAY 50 MCG/SPRY 120 SPRAY/16 GM NASL SCH ×2 (14:01→22:37)
[2016-11-23] MEDS: HEPARIN SOD (PORCINE) 5,000 UNIT/ML 1 ML SYRINGE SUBCUT SCH ×2 (14:03→22:32)
--- NOTE | 2016-11-23 14:45 | Physician Advisory Note ---
Physician Advisor ProgressNote .: Pursuant to the plan for [facility], I have reviewed the medical record for this patient. Physician Advisor Statement: Possible documentation opportunities if attending agrees: 1. "Acute Hypoxemic Respiratory Failure with labored breathing, tachypnea, tachycardia, sats as low as 93% despite 3L O2, & need for Bipap" 2. "Acute ___ CHF" [diastolic? systolic & diastolic?] 3. ? - "mild acute hyponatremia due to acute CHF" 4. See below - status. As always, if concerned about any unstable VS or abnormal labs, please comment on them & note what doing about them, & please document each day the potential clinical problems you are concerned could occur if pt not kept in hospital for tx at this time. Discussion: 66yo female w/ chronic co-morbidities including COPD, asthma, tobacco dependence , HTN, DM-2, breast CA/lumpectomy, GERD, schizophrenia, depression, anxiety - presented 3AM to ED w/worsening SOB, BLE edema. Given neb & 60mg prednisone the day before in ED before she left (left before eval finished). DCP note states pt uses O2 at home that she gets via [facility]. However, when called to ask how much O2 she uses at baseline, she found: "They have no record of her getting O2 through them. She gets albuterol neb medication and diabetic meds through them." (+) HR 120, RR 25-32. WBC 11.2 (but got prednisone the day before), Na 136.9, K 3.5, Mag 1.5, BNP up from 40 to 3130, CK = 245 at 8AM, EKG = ST @125, ED gave her neb, Lasix 40 IV, NTP 1inch, Mag ox, KCL, po Xanax x1. Attending ordered O2 2L, Bipap, I/Os, daily wts, tele monitoring, serial cardiac enzymes, f/u labs, ECHO, doxy po, Duonebs q6h, albuterol prn, Lasix 20mg IV q12, KCL 20mg q12, Prednisone 40mg daily. Status: Pt with chronic hypoxemic respiratory failure on COPD/asthma, with HTN/DM/ ongoing tobacco abuse with prior diastolic dysfunction by ECHO, now here w/ apparent acute ___ type CHF. Tachycardic & tachypneic, despite Duoneb & then Lasix IV w/NTPaste tx in ED. By 7AM, per day shift ED nurse report to CANDIE Duarte, pt was on 2L O2 (sat 97% at 7AM, gives P/F ratio 393) but pt remained SOB. By 9AM, she required Bipap w/0.35 FiO2 (P/F ratio 306). At 10:17, sat was 93% on 2L nc (P/F ratio 243) Per nursing assessment at 10:41, she still had labored breathing, SOB at rest, wheezes, tachypnea, & sat only 93% on 3L O2 (=P/F ratio 213, whichis diagnostic of acute resp failure), leading to O2 being increased to 4L. At 11:32, pt even more tachycardic at 133, more tachypneic at 33, still labored breathing, w/sat 96% on 4L (P/F ratio 250). Elevated CKs, w/nl trop Is, likely related to increased work of breathing x hrs. Her electrolyte abnormalities may worsen with the diuretics & nebs needed. This pt is not responding appropriately & promptly to appropriate therapy, and has persistent tachycardia & tachypnea and increased work of breathing. She has high risk for additional adverse cardiac events due to increased cardiac workload & worsened hypoxemia on top of chronic cardiac risk factor co- morbidities. A typical acute CHF pt is appropriate for Outpt Obs status initially with change to Inpt the next day if not able to be safely d/c'd (Medicare), but this pt at this time appears to be extremely likely to require at least 2 MNs of hospital inpatient care to stabilize her condition such that she can be safely d /c'd given the issues above. If attending agrees, please document reasons/ concerns & may consider change to Inpatient status. Tx in inpatient hospital setting medically reasonable & necessary to protect pt' s health, safety, & medical condition? Thanks for your help with documentation accuracy/specificity improvement! Digna Jeronimo MD [facility] Physician Advisor, Fellow of Hospital Medicine
[2016-11-23] MEDS ORDERED: LORAZEPAM INJ 2 MG/1 ML VIAL IV PRN (15:08)
--- NOTE | 2016-11-23 17:06 | PDOC PROGRESS REPORT ---
Subjective Progress Note for:: 11/23/16 Subjective:: Patient has continued shortness of breath. Patient denies fever, chills, headache, new focal weakness, chest pain, abdominal pain, nausea, vomiting, diarrhea, constipation. Physical Exam Vital Signs: Temp Pulse Resp BP Pulse Ox 98.6 F 130 H 18 63/47 L 98 11/23/16 15:33 11/23/16 15:33 11/23/16 15:33 11/23/16 15:33 11/23/16 15:33 Intake & Output 11/22/16 11/23/16 11/24/16 06:59 06:59 06:59 Weight 77 kg GENERAL: No acute distress HEENT: Conjunctiva clear, nonicteric, moist mucous membranes, no JVD, midline trachea RESPIRATORY: Bilateral wheezes CARDIAC: Regular rate and rhythm, no murmurs/gallops/rubs ABDOMEN: Soft, nondistended, nontender, positive bowel sounds, no rebound, no guarding EXTREMETIES: 2+ bilateral lower extremity edema NEUROLOGIC: Alert, oriented to person/place/time, CN's grossly intact, no focal deficits SKIN: No rash, wounds PSYCH: Normal mood, unusual affect Results Laboratory Results: 11/23/16 11/23/16 08:04 08:04 Creatine Kinase 245 H CK-MB (CK-2) 2.23 Troponin I < 0.012 Impressions: Chest X-Ray 11/23/16 00:00 IMPRESSION: COPD. NO ACUTE RADIOGRAPHIC FINDING IN THE CHEST. Assessment & Plan - Diagnosis (1) CHF (congestive heart failure) Qualifiers: Congestive heart failure type: diastolic Congestive heart failure chronicity: acute Qualified Code(s): I50.31 - Acute diastolic (congestive ) heart failure Is this a current diagnosis for this admission?: YesPlan: Patient has acutely decompensated. Echocardiogram from 2010 showed diastolic dysfunction, EF 55%. Continue Lasix 20 mg IV every 12 hours. Monitor strict I/ O, daily weight. Repeat echocardiogram as it has been 6 years. Cardiac enzymes negative 2 sets. (2) COPD (chronic obstructive pulmonary disease) Is this a current diagnosis for this admission?: Yes (3) Schizophrenia Is this a current diagnosis for this admission?: YesPlan: Continue supportive care. Patient resides with family. (4) Hypertension Is this a current diagnosis for this admission?: YesPlan: When necessary IV hydralazine. Patient does not take any regular medications. (5) Diabetes Is this a current diagnosis for this admission?: YesPlan: Continue Tradjenta. Sliding scale insulin. (6) Tobacco abuse Is this a current diagnosis for this admission?: YesPlan: Nicotinic patch. - Time Time Spent with patient: 35 or more minutes
[2016-11-23 17:50] LABS: CREATINE KINASE MB 1.61 ng/mL (<4.55)
[2016-11-23 17:54] LABS: TROPONIN I < 0.012 ng/mL
[2016-11-23] MEDS: LANSOPRAZOLE 15 MG TAB.RAP.DR PO SCH (19:34)
[2016-11-23] MEDS: NICOTINE 14 MG/24 HR PATCH.TD24 TD SCH (19:34)
[2016-11-23] MEDS: ALBUTEROL SULFATE 0.083% NEB 2.5 MG/3 ML AMPUL NEB SCH (19:43)
--- NOTE | 2016-11-23 20:29 | XCELERA REPORT ---
[address] [address] Transthoracic Echocardiogram Report Name: ALEJANDRA CHENG Age: 66 yrs Gender: Female : 1950 Patient Status: Inpatient Patient Location: 5\[id number]\532\S\A Study Date: 11/23/2016 02:39 PM Height: 64 in Weight: 169 lb BSA: 1.8 m2 Procedure: A complete two-dimensional transthoracic echocardiogram was performed (2D, M-mode, spectral and color flow Doppler). The study was technically adequate with some images being suboptimal in quality. Reason For Study: systolic murmur Ordering Physician: BECCA PLATA Performed By: Soo Rodriguez Interpretation Summary The left ventricular ejection fraction is normal. There is mild concentric left ventricular hypertrophy. The left ventricle is grossly normal size. Doppler measurements suggest pseudonormalized left ventricular relaxation, which is associated with grade II/IV or mild to moderate diastolic dysfunction Wall motion cannot be accurately commented on, but no definite regional wall motion abnormalities noted. The right ventricular systolic function is normal. The right atrium is mildly dilated. The left atrium is borderline dilated. There is a trace amount of mitral regurgitation There is no mitral valve stenosis. There is a trace to mild amount of aortic regurgitation There is no aortic valve stenosis There is a trace to mild amount of tricuspid regurgitation There is mild pulmonary hypertension by echo Right ventricular systolic pressure is estimated to be elevated at 30- 40mmHg. The aortic root is not well visualized but is probably normal size. The inferior vena cava appeared normal and decreased > 50% with respiration (RAP 5-10 mmHg) There is no pericardial effusion. MMode/2D Measurements \T\ Calculations RVDd: 3.5 cm LVIDd: 4.7 cm FS: 45.0 % Ao root diam: 2.8 cm IVSd: 1.0 cm LVIDs: 2.6 cm EDV(Teich): 100.5 ml LVPWd: 1.0 cm ESV(Teich): 23.8 ml Ao root area: 6.1 cm2 EF(Teich): 76.3 % LA dimension: 2.7 cm Doppler Measurements \T\ Calculations MV E max alphonso: MV P1/2t max alphonso: Ao V2 max: LV V1 max P.0 cm/sec 74.0 cm/sec 140.6 cm/sec 5.5 mmHg MV A max alphonso: MV P1/2t: 42.4 msec Ao max PG: LV V1 max: 149.9 cm/sec 7.9 mmHg 117.2 cm/sec MV E/A: 0.49 MVA(P1/2t): 5.2 cm2 MV dec slope: 511.4 cm/sec2 MV dec time: 0.14 sec PA V2 max: 140.5 cm/sec PA max P.9 mmHg Left Ventricle The left ventricle is grossly normal size. There is mild concentric left ventricular hypertrophy. The left ventricular ejection fraction is normal. Doppler measurements suggest pseudonormalized left ventricular relaxation, which is associated with grade II/IV or mild to moderate diastolic dysfunction. Wall motion cannot be accurately commented on, but no definite regional wall motion abnormalities noted. Right Ventricle The right ventricle is normal in size, thickness and function. There is normal right ventricular wall thickness. The right ventricular systolic function is normal. Atria The right atrium is mildly dilated. The left atrium is borderline dilated. Interarterial septum not well visualized and not well dopplered. Cannot comment on ASD/PFO presence. Mitral Valve The mitral valve is grossly normal. There is no mitral valve stenosis. There is a trace amount of mitral regurgitation. Aortic Valve The aortic valve is grossly normal. There is no aortic valve stenosis. There is a trace to mild amount of aortic regurgitation. Tricuspid Valve The tricuspid valve is not well visualized, but is grossly normal. There is no tricuspid stenosis. There is a trace to mild amount of tricuspid regurgitation. There is mild pulmonary hypertension by echo. Right ventricular systolic pressure is estimated to be elevated at 30-40mmHg. Pulmonic Valve The pulmonic valve is not well visualized. Great Vessels The aortic root is not well visualized but is probably normal size. The inferior vena cava appeared normal and decreased > 50% with respiration (RAP 5-10 mmHg). Effusions There is no pericardial effusion. : BECCA PLATA > Maegan Page
[2016-11-23] MEDS ORDERED: LORAZEPAM 0.5 MG TABLET PO SCH (22:00)
[2016-11-23 22:31] LABS: CREATINE KINASE MB 1.93 ng/mL (<4.55)
[2016-11-23 22:34] LABS: TROPONIN I < 0.012 ng/mL
[2016-11-24 04:51] LABS: ABSOLUTE LYMPHOCYTES (AUTO) 0.7 10^3/uL (0.5-4.7); ABSOLUTE MONOCYTES (AUTO) 0.9 10^3/uL (0.1-1.4); ABSOLUTE NEUT (AUTO) 6.2 10^3/uL (1.7-8.2); BASOPHILS % (AUTO) 0.4 % (0-2); HEMATOCRIT 41.5 % (36.0-47.0); HEMOGLOBIN 13.6 g/dL (12.0-15.5); HGB HCT DIFFERENCE -0.7; LYMPHOCYTES % (AUTO) 9.4 % (13-45); MEAN CORPUSCULAR HEMOGLOBIN 27.5 pg (27.0-33.4); MEAN CORPUSCULAR HGB CONC 32.7 g/dL (32.0-36.0); MEAN CORPUSCULAR VOLUME 84 fl (80-97); MONOCYTES % (AUTO) 11.7 % (3-13); RED BLOOD COUNT 4.93 10^6/uL (3.72-5.28); RED CELL DISTRIBUTION WIDTH 14.7 % (11.5-14.0); SEGMENTED NEUTROPHILS % (AUTO) 78.5 % (42-78); WHITE BLOOD COUNT 7.9 10^3/uL (4.0-10.5)
[2016-11-24 05:07] LABS: ANION GAP 14 (5-19); BLOOD UREA NITROGEN 21 mg/dL (7-20); CALCIUM 9.4 mg/dL (8.4-10.2); CARBON DIOXIDE 27 mmol/L (22-30); CHLORIDE 100 mmol/L (98-107); CHOLESTEROL 176.42 mg/dL (0-200); CREATININE RESULT 0.93 mg/dL (0.52-1.25); Direct HDL 58 mg/dL (>40); GLUCOSE 121 mg/dL (75-110); POTASSIUM 4.4 mmol/L (3.6-5.0); SODIUM 140.5 mmol/L (137-145); TRIGLYCERIDES 138 mg/dL (<150)
[2016-11-24 05:18] LABS: DIRECT LDL 88 mg/dL (<100)
[2016-11-24] MEDS: HEPARIN SOD (PORCINE) 5,000 UNIT/ML 1 ML SYRINGE SUBCUT SCH ×3 (06:43→21:49)
[2016-11-24] MEDS: ALBUTEROL SULFATE 0.083% NEB 2.5 MG/3 ML AMPUL NEB SCH ×3 (07:45→20:42)
[2016-11-24] MEDS ORDERED: (PENDING PHARMACY ID) (Linagliptin [Tradjenta] 5 MG) PO SCH (10:00)
[2016-11-24] MEDS ORDERED: FLUPHENAZINE HCL 10 MG PO SCH (10:00)
[2016-11-24] MEDS ORDERED: (PENDING PHARMACY ID) (Cetirizine Hcl [Zyrtec] 10 MG) PO SCH (10:00)
[2016-11-24] MEDS: SITAGLIPTIN PHOSPHATE 50 MG TABLET PO SCH (10:06)
[2016-11-24] MEDS: DOCUSATE SODIUM 100 MG CAPSULE PO SCH (10:07)
[2016-11-24] MEDS: LANSOPRAZOLE 15 MG TAB.RAP.DR PO SCH ×2 (10:07→18:51)
[2016-11-24] MEDS: DOXYCYCLINE HYCLATE 100 MG TABLET PO SCH ×2 (10:08→21:52)
[2016-11-24] MEDS: FLUOXETINE HCL 20 MG CAPSULE PO SCH (10:08)
[2016-11-24] MEDS: CETIRIZINE 10 MG TABLET PO SCH (10:08)
[2016-11-24] MEDS: PREDNISONE 20 MG TABLET PO SCH (10:08)
[2016-11-24] MEDS: POTASSIUM CHLORIDE 10 MEQ TABLET.SA PO SCH (10:09)
[2016-11-24] MEDS: FUROSEMIDE INJ/PF 20 MG/2 ML SDV IV SCH (10:10)
[2016-11-24] MEDS: NICOTINE 14 MG/24 HR PATCH.TD24 TD SCH (10:11)
[2016-11-24] MEDS ORDERED: LORAZEPAM 0.5 MG TABLET PO PRN (10:35)
[2016-11-24] MEDS: FLUPHENAZINE HCL 2.5 MG TABLET PO SCH (10:51)
[2016-11-24] MEDS: FLUTICASONE NASAL SPRAY 50 MCG/SPRY 120 SPRAY/16 GM NASL SCH ×2 (10:52→21:51)
--- NOTE | 2016-11-24 16:00 | PDOC PROGRESS REPORT ---
Subjective Progress Note for:: 11/24/16 Subjective:: Patient states that her shortness of breath is much improved and she is inquiring about when she will go home. She would also like to be taken off of her fluid restriction. Patient denies fever, chills, headache, new focal weakness, chest pain, shortness of breath, abdominal pain, nausea, vomiting, diarrhea, constipation. Physical Exam Vital Signs: Temp Pulse Resp BP Pulse Ox 98.6 F 114 H 20 105/62 95 11/24/16 12:00 11/24/16 13:10 11/24/16 13:10 11/24/16 11:29 11/24/16 13:10 GENERAL: No acute distress HEENT: Conjunctiva clear, nonicteric, moist mucous membranes, no JVD, midline trachea RESPIRATORY: Clear to auscultation bilaterally, no wheezes, no rhonchi CARDIAC: Regular rate and rhythm, no murmurs/gallops/rubs ABDOMEN: Soft, nondistended, nontender, positive bowel sounds, no rebound, no guarding EXTREMETIES: 1+ bilateral lower extremity edema NEUROLOGIC: Alert, oriented to person/place/time, CN's grossly intact, no focal deficits SKIN: No rash, wounds PSYCH: Normal mood, normal affect Results Impressions: Chest X-Ray 11/23/16 00:00 IMPRESSION: COPD. NO ACUTE RADIOGRAPHIC FINDING IN THE CHEST. Assessment & Plan - Diagnosis (1) Acute hypoxemic respiratory failure Is this a current diagnosis for this admission?: YesPlan: Continue to wean oxygen supplementation as tolerated. (2) CHF (congestive heart failure) Qualifiers: Congestive heart failure type: diastolic Congestive heart failure chronicity: acute Qualified Code(s): I50.31 - Acute diastolic (congestive ) heart failure Is this a current diagnosis for this admission?: YesPlan: Patient is now compensated. Echocardiogram 11/23/16 showed diastolic dysfunction , EF 55%. Discontinue IV Lasix. Start Lasix 40 mg by mouth daily. Start Coreg 3.125 mg twice daily. (3) COPD (chronic obstructive pulmonary disease) Is this a current diagnosis for this admission?: YesPlan: Continue prednisone, doxycycline, albuterol. (4) Schizophrenia Is this a current diagnosis for this admission?: YesPlan: Continue supportive care. Patient resides with family. Continue Prolixin, Prozac. (5) Hypertension Is this a current diagnosis for this admission?: YesPlan: When necessary IV hydralazine. Patient does not take any regular medications as an outpatient. Start Coreg 3.125 mg twice daily for this as well as diastolic dysfunction. (6) Diabetes Is this a current diagnosis for this admission?: YesPlan: Continue Tradjenta. Sliding scale insulin. (7) Tobacco abuse Is this a current diagnosis for this admission?: Yes - Time Time Spent with patient: 25-34 minutes Anticipated discharge: Home Within: within 24 hours
[2016-11-24] MEDS ORDERED: PREDNISONE 20 MG TABLET PO SCH (18:00)
[2016-11-24] MEDS: CARVEDILOL 3.125 MG TABLET PO SCH (21:52)
[2016-11-25] MEDS: HEPARIN SOD (PORCINE) 5,000 UNIT/ML 1 ML SYRINGE SUBCUT SCH (05:51)
[2016-11-25] MEDS: ALBUTEROL SULFATE 0.083% NEB 2.5 MG/3 ML AMPUL NEB SCH ×2 (08:29→14:33)
[2016-11-25] MEDS ORDERED: FUROSEMIDE 40 MG TABLET PO SCH (10:00)
[2016-11-25] MEDS ORDERED: POTASSIUM CHLORIDE 10 MEQ TABLET.SA PO SCH (10:00)
[2016-11-25] MEDS: ALBUTEROL SULFATE 0.083% NEB 2.5 MG/3 ML AMPUL NEB PRN (10:36)
[2016-11-25] MEDS: SITAGLIPTIN PHOSPHATE 50 MG TABLET PO SCH (11:09)
[2016-11-25] MEDS: DOXYCYCLINE HYCLATE 100 MG TABLET PO SCH (11:10)
[2016-11-25] MEDS: FLUOXETINE HCL 20 MG CAPSULE PO SCH (11:10)
[2016-11-25] MEDS: CETIRIZINE 10 MG TABLET PO SCH (11:11)
[2016-11-25] MEDS: CARVEDILOL 3.125 MG TABLET PO SCH (11:14)
[2016-11-25] MEDS: FLUTICASONE NASAL SPRAY 50 MCG/SPRY 120 SPRAY/16 GM NASL SCH (11:14)
[2016-11-25] MEDS: FLUPHENAZINE HCL 2.5 MG TABLET PO SCH (11:15)
[2016-11-25] MEDS: LANSOPRAZOLE 15 MG TAB.RAP.DR PO SCH (11:16)
[2016-11-25] MEDS: DOCUSATE SODIUM 100 MG CAPSULE PO SCH (11:18)
[2016-11-25] MEDS: NICOTINE 14 MG/24 HR PATCH.TD24 TD SCH (12:31)
--- NOTE | 2016-11-25 14:59 | PDOC DISCHARGE SUMMARY ---
General - Admit/Disc Date/PCP Admission Date/Primary Care Provider: 11/24/16 08:49 Discharge Date: 11/25/16 - Discharge Diagnosis (1) Acute hypoxemic respiratory failure Is this a current diagnosis for this admission?: Yes (2) CHF (congestive heart failure) Is this a current diagnosis for this admission?: Yes (3) COPD (chronic obstructive pulmonary disease) Is this a current diagnosis for this admission?: Yes (4) Schizophrenia Is this a current diagnosis for this admission?: Yes (5) Hypertension Is this a current diagnosis for this admission?: Yes (6) Diabetes Is this a current diagnosis for this admission?: Yes (7) Tobacco abuse Is this a current diagnosis for this admission?: Yes - Additional Information Resuscitation Status: Full Code Discharge Diet: Cardiac, Diabetic Discharge Activity: Activity As Tolerated, Balance Activity w/Rest, Weigh Daily Home Medications: Cetirizine HCl [Zyrtec] 10 mg PO DAILY 11/23/16 Fluoxetine HCl [Prozac 20 mg Capsule] 20 mg PO DAILY 11/23/16 Fluphenazine HCl 10 mg PO DAILY 11/23/16 Linagliptin [Tradjenta] 5 mg PO DAILY 11/23/16 Lorazepam [Ativan 0.5 mg Tablet] 0.5 mg PO BID 11/23/16 Omeprazole 20 mg PO BID 11/23/16 Albuterol Sulfate [Proair HFA Inhalation Aerosol 8.5 gm MDI] 1 puff IH Q4 PRN # 1 mdi 11/25/16 Albuterol Sulfate [Ventolin 0.083% Neb 2.5 mg/3 mL Ampul] 2.5 mg NEB RTQ6HP PRN #60 vial.neb 11/25/16 Doxycycline Hyclate [Vibramycin 100 mg Tablet] 100 mg PO Q12 #10 tablet Furosemide [Lasix] 40 mg PO QAM #30 tablet 11/25/16 Potassium Chloride [Klor-Con 10 Meq Tablet.sa] 20 meq PO DAILY #60 tablet.sa Prednisone [Deltasone 20 mg Tablet] 20 mg PO DAILY #3 tablet 11/25/16 History of Present Illness Patient complains of: Shortness of breath History of Present Illness: ALEJANDRA CHENG is a 66 year old female that presented with shortness of breath. Was admitted for acute CHF and COPD. Hospital Course Hospital Course: Patient was omitted for acute CHF. She was diuresed with IV Lasix. She became clinically compensated and was transitioned to oral Lasix. She remains stable. Echocardiogram showed diastolic dysfunction. Patient was started on Coreg but had worsening of bronchospasm on this medication so this was discontinued. With regard to COPD exacerbation, patient was treated with prednisone, doxycycline, albuterol. She was advised to discontinue smoking. Physical Exam Vital Signs: Temp Pulse Resp BP Pulse Ox 97.2 F 90 18 105/75 93 11/25/16 11:48 11/25/16 14:38 11/25/16 14:38 11/25/16 11:48 11/25/16 14:38 Intake & Output 11/24/16 11/25/16 11/26/16 06:59 06:59 06:59 Intake Total 1455 Output Total 0 Balance 1455 Weight 80.3 kg GENERAL: No acute distress HEENT: Conjunctiva clear, nonicteric, moist mucous membranes, no JVD, midline trachea RESPIRATORY: Faint bilateral wheezes, good air excursion CARDIAC: Regular rate and rhythm, no murmurs/gallops/rubs ABDOMEN: Soft, nondistended, nontender, positive bowel sounds, no rebound, no guarding EXTREMETIES: No edema, cyanosis, clubbing NEUROLOGIC: Alert, oriented to person/place/time, CN's grossly intact, no focal deficits SKIN: No rash, wounds PSYCH: Normal mood, normal affect Results Laboratory Results: Labs- Last Values WBC 7.9 10^3/uL (4.0-10.5) 11/24/16 03:58 RBC 4.93 10^6/uL (3.72-5.28) 11/24/16 03:58 Hgb 13.6 g/dL (12.0-15.5) 11/24/16 03:58 Hct 41.5 % (36.0-47.0) 11/24/16 03:58 MCV 84 fl (80-97) 11/24/16 03:58 MCH 27.5 pg (27.0-33.4) 11/24/16 03:58 MCHC 32.7 g/dL (32.0-36.0) 11/24/16 03:58 RDW 14.7 % (11.5-14.0) H 11/24/16 03:58 Plt Count 258 10^3/uL (150-450) 11/24/16 03:58 Total Counted 100 11/23/16 04:37 Seg Neutrophils % 78.5 % (42-78) H 11/24/16 03:58 Seg Neuts % (Manual) 90 % (42-78) H 11/23/16 04:37 Band Neutrophils % 2 % (3-5) L 11/23/16 04:37 Lymphocytes % 9.4 % (13-45) L 11/24/16 03:58 Lymphocytes % (Manual) 6 % (13-45) L 11/23/16 04:37 Monocytes % 11.7 % (3-13) 11/24/16 03:58 Monocytes % (Manual) 2 % (3-13) L 11/23/16 04:37 Eosinophils % 0.0 % (0-6) 11/24/16 03:58 Eosinophils % (Manual) 0 % (0-6) 11/23/16 04:37 Basophils % 0.4 % (0-2) 11/24/16 03:58 Basophils % (Manual) 0 % (0-2) 11/23/16 04:37 Absolute Neutrophils 6.2 10^3/uL (1.7-8.2) 11/24/16 03:58 Abs Neuts (Manual) 10.3 10^3/uL (1.7-8.2) H 11/23/16 04:37 Absolute Lymphocytes 0.7 10^3/uL (0.5-4.7) 11/24/16 03:58 Abs Lymphs (Manual) 0.7 10^3/uL (0.5-4.7) 11/23/16 04:37 Absolute Monocytes 0.9 10^3/uL (0.1-1.4) 11/24/16 03:58 Abs Monocytes (Manual) 0.2 10^3/uL (0.1-1.4) 11/23/16 04:37 Absolute Eosinophils 0.0 10^3/uL (0.0-0.6) 11/24/16 03:58 Absolute Eos (Manual) 0.0 10^3/uL (0.0-0.6) 11/23/16 04:37 Absolute Basophils 0.0 10^3/uL (0.0-0.2) 11/24/16 03:58 Abs Basophils (Manual) 0.0 10^3/uL (0.0-0.2) 11/23/16 04:37 Toxic Granulation SLIGHT 11/23/16 04:37 Toxic Vacuolation PRESENT 11/23/16 04:37 Large Platelets PRESENT 11/23/16 04:37 Platelet Comment ADEQUATE 11/23/16 04:37 Poikilocytosis SLIGHT 11/23/16 04:37 Anisocytosis SLIGHT 11/23/16 04:37 Sodium 140.5 mmol/L (137-145) 11/24/16 03:58 Potassium 4.4 mmol/L (3.6-5.0) 11/24/16 03:58 Chloride 100 mmol/L (98-107) 11/24/16 03:58 Carbon Dioxide 27 mmol/L (22-30) 11/24/16 03:58 Anion Gap 14 (5-19) 11/24/16 03:58 BUN 21 mg/dL (7-20) H 11/24/16 03:58 Creatinine 0.93 mg/dL (0.52-1.25) 11/24/16 03:58 Est GFR ( Amer) > 60 (>60) 11/24/16 03:58 Est GFR (Non-Af Amer) > 60 (>60) 11/24/16 03:58 Glucose 121 mg/dL (75-110) H 11/24/16 03:58 POC Glucose 96 mg/dL (70-110) 11/25/16 11:13 Calcium 9.4 mg/dL (8.4-10.2) 11/24/16 03:58 Magnesium 1.5 mg/dL (1.6-2.3) L 11/23/16 04:37 Total Bilirubin 0.6 mg/dL (0.2-1.3) 11/23/16 04:37 Direct Bilirubin 0.1 mg/dL (0.0-0.4) 11/23/16 04:37 Indirect Bilirubin Not Reportable 11/23/16 04:37 Neonat Total Bilirubin Not Reportable 11/23/16 04:37 AST 27 U/L (14-36) 11/23/16 04:37 ALT 38 U/L (9-52) 11/23/16 04:37 Alkaline Phosphatase 150 U/L (38-126) H 11/23/16 04:37 Creatine Kinase 641 U/L (30-135) H 11/23/16 21:55 CK-MB (CK-2) 1.93 ng/mL (<4.55) 11/23/16 21:55 Troponin I < 0.012 ng/mL 11/23/16 21:55 NT-Pro-B Natriuret Pep 3130 pg/mL (5-900) H 11/23/16 04:37 Total Protein 7.3 g/dL (6.3-8.2) 11/23/16 04:37 Albumin 4.6 g/dL (3.5-5.0) 11/23/16 04:37 Triglycerides 138 mg/dL (<150) 11/24/16 03:58 Cholesterol 176.42 mg/dL (0-200) 11/24/16 03:58 LDL Cholesterol Direct 88 mg/dL (<100) 11/24/16 03:58 VLDL Cholesterol 28.0 mg/dL (10-31) 11/24/16 03:58 HDL Cholesterol 58 mg/dL (>40) 11/24/16 03:58 TSH 0.60 uIU/mL (0.47-4.68) 11/23/16 04:37 Impressions: Chest X-Ray 11/23/16 00:00 IMPRESSION: COPD. NO ACUTE RADIOGRAPHIC FINDING IN THE CHEST. Qualifiers PATEINT BEING DISCHARGED WITH ANY OF THE FOLLOWING DIAGNOSIS?: No Plan Time Spent: Less than 30 Minutes
[2016-11-25 15:06] VITALS: BP 109/79
--- NOTE | 2016-12-30 19:24 | PDOC H&P ---
History of Present Illness Patient complains of: Shortness of breath History of Present Illness: ALEJANDRA CHENG is a 66 year old female with a past medical history of diastolic heart failure, COPD with tobacco dependence, hypertension diabetes and schizophrenia who presents to the emergency room with shortness of breath, uncontrolled hypertension and tachycardia. She denies chest pain nausea vomiting denies recent change in her medications though does not know her medications. She receives IV Lasix and is referred to the hospitalist for admission Past Medical History Cardiac Medical History: Reports: Hyperlipidema, Hypertension Pulmonary Medical History: Reports: Asthma, Bronchitis, Chronic Obstructive Pulmonary Disease (COPD) Neurological Medical History: Endocrine Medical History: Reports: Diabetes Mellitus Type 2 Malignancy Medical History: Reports: Breast Cancer GI Medical History: Reports: Gastroesophageal Reflux Disease Musculoskeltal Medical History: Reports: Arthritis Psychiatric Medical History: Reports: Depression, Schizoaffective Disorder, Tobacco Dependency Hematology: Denies: Anemia, Sickle Cell Disease Past Surgical History Past Surgical History: Reports: Cholecystectomy, Hysterectomy, Orthopedic Surgery Denies: Amputation Social History Information Source: Patient, [facility] Records Smoking Status: Current Every Day Smoker Cigarettes Packs Per Day: 1 Hx Recreational Drug Use: No Drugs: None Hx Prescription Drug Abuse: No - Advance Directive Resuscitation Status: Full Code Family History Family History: COPD, DM, Hyperlipidemia, Hypertension Parental Family History Reviewed: Yes Children Family History Reviewed: Yes Sibling(s) Family History Reviewed.: Yes Medication/Allergy Home Medications: Linagliptin [Tradjenta] 5 mg PO DAILY 11/30/15 Albuterol Sulfate [Ventolin Hfa] 1 puff IH PRN PRN 06/05/16 Aripiprazole 1 tab PO DAILY 06/05/16 Cetirizine HCl [Allergy] 1 tab PO DAILY 06/05/16 Famotidine 1 tab PO BID 06/05/16 Hydrochlorothiazide 1 tab PO DAILY 06/05/16 Lidocaine HCl [Lidocaine HCl Viscous] 06/05/16 Benztropine Mesylate 1 mg PO QHS #5 tablet 06/06/16 Fluphenazine HCl [Prolixin 2.5 Mg Tablet] 5 mg PO Q8 #15 tablet 06/06/16 Olanzapine [Zyprexa Zydis] 10 mg PO Q6HP PRN #14 tab.rapdis 06/06/16 Diphenhydramine HCl [Benadryl 50 mg Capsule] 1 cap PO Q6 PRN #14 capsule Albuterol Sulfate [Albuterol Sulfate 2.5mg/3 mL] 1 vial IH Q4 PRN #30 vial 08/08 Prednisone [Deltasone 20 mg Tablet] 3 tab PO DAILY 5 Days 08/08/16 Albuterol Sulfate [Proair HFA Inhalation Aerosol 8.5 gm MDI] 2 puff IH Q4H PRN # 1 mdi 08/11/16 Hydroxyzine Pamoate [Vistaril 25 mg Capsule] 25 mg PO BIDP PRN #14 capsule 08/11 Albuterol Sulfate [Proair HFA Inhalation Aerosol 8.5 gm MDI] 2 puff IH Q4H PRN # 1 mdi 09/23/16 Prednisone [Deltasone 20 mg Tablet] 60 mg PO DAILY 5 Days 09/23/16 Allergies/Adverse Reactions: Sulfa (Sulfonamide Antibiotics) Allergy (Verified 11/22/16 14:55) Review of Systems ROS unobtainable: Due to mental status - Review of systems is felt to be unreliable she answers affirmatively all questions Physical Exam Vital Signs: Temp Pulse Resp BP Pulse Ox 96 11/23/16 04:20 General appearance: PRESENT: cooperative, disheveled, mild distress, morbidly obese Head exam: PRESENT: atraumatic, normocephalic Eye exam: PRESENT: conjunctiva pink, EOMI, PERRLA. ABSENT: scleral icterus Ear exam: PRESENT: normal external ear exam Mouth exam: PRESENT: moist, tongue midline Neck exam: ABSENT: carotid bruit, JVD, lymphadenopathy, thyromegaly Respiratory exam: PRESENT: accessory muscle use, crackles, prolonged expiratory phas, symmetrical, tachypnea, wheezes. ABSENT: chest wall tenderness, stridor Cardiovascular exam: PRESENT: RRR. ABSENT: diastolic murmur, rubs, systolic murmur Pulses: PRESENT: normal dorsalis pedis pul GI/Abdominal exam: PRESENT: normal bowel sounds, soft. ABSENT: distended, guarding, mass, organolmegaly, rebound, tenderness Rectal exam: PRESENT: deferred Extremities exam: PRESENT: full ROM. ABSENT: calf tenderness, clubbing, pedal edema Neurological exam: PRESENT: alert, awake, oriented to person, oriented to place , oriented to time, oriented to situation, CN II-XII grossly intact. ABSENT: motor sensory deficit Psychiatric exam: PRESENT: agitated, anxious Skin exam: PRESENT: dry, intact, warm. ABSENT: cyanosis, rash Results Laboratory Results: 11/23/16 04:37 11/23/16 04:37 11/23/16 11/23/16 04:37 04:37 WBC 11.2 H RBC 5.28 Hgb 14.3 Hct 43.7 MCV 83 MCH 27.0 MCHC 32.6 RDW 14.7 H Plt Count 329 Seg Neutrophils % Not Reportable Lymphocytes % Not Reportable Monocytes % Not Reportable Eosinophils % Not Reportable Basophils % Not Reportable Absolute Neutrophils Not Reportable Absolute Lymphocytes Not Reportable Absolute Monocytes Not Reportable Absolute Eosinophils Not Reportable Absolute Basophils Not Reportable Sodium 136.9 L Potassium 3.5 L Chloride 96 L Carbon Dioxide 27 Anion Gap 14 BUN 9 Creatinine 0.67 Est GFR ( Amer) > 60 Est GFR (Non-Af Amer) > 60 Glucose 126 H Calcium 10.2 Magnesium 1.5 L Total Bilirubin 0.6 AST 27 ALT 38 Alkaline Phosphatase 150 H Total Protein 7.3 Albumin 4.6 11/23/16 04:37 Troponin I < 0.012 NT-Pro-B Natriuret Pep 3130 H Impressions: Chest X-Ray 11/23/16 00:00 IMPRESSION: COPD. NO ACUTE RADIOGRAPHIC FINDING IN THE CHEST.
== END 2016-11-25 16:04 | disposition home or self-care (01) | DRG 291 ==
LOC: ER 03:03 → EH 06:35 → UNDOADMOB 06:54 → INTOOBSV 06:54 → EH 06:54 → 5 10:17 → OBSVTOIN 11-24 08:49
PROVIDERS: ADMIT Internal Medicine; ATTEND Internal Medicine
PROC: 5A09357 Assistance with Respiratory Ventilation, Less than 24 Consecutive Hours, Continuous Positive Airway Pressure (ICD-10-PCS; principal; 2016-11-23)
PROC: 3E0F73Z Introduction of Anti-inflammatory into Respiratory Tract, Via Natural or Artificial Opening (ICD-10-PCS; 2016-11-23)
DX: I11.0 Hypertensive heart disease with heart failure (principal); J96.01 Acute respiratory failure with hypoxia; J44.1 Chronic obstructive pulmonary disease with (acute) exacerbation; I50.31 Acute diastolic (congestive) heart failure; F20.9 Schizophrenia, unspecified; E11.9 Type 2 diabetes mellitus without complications; F17.210 Nicotine dependence, cigarettes, uncomplicated; E78.00 Pure hypercholesterolemia, unspecified; J45.909 Unspecified asthma, uncomplicated; F41.9 Anxiety disorder, unspecified; K21.9 Gastro-esophageal reflux disease without esophagitis; M19.90 Unspecified osteoarthritis, unspecified site; F32.9 Major depressive disorder, single episode, unspecified; Z79.899 Other long term (current) drug therapy; Z88.2 Allergy status to sulfonamides; Z85.3 Personal history of malignant neoplasm of breast; Z90.49 Acquired absence of other specified parts of digestive tract; Z90.710 Acquired absence of both cervix and uterus; Z83.6 Family history of other diseases of the respiratory system; Z83.3 Family history of diabetes mellitus; Z82.49 Family history of ischemic heart disease and other diseases of the circulatory system
CPT/HCPCS: 36415; 71020; 80048; 80053; 80061; 82550; 82553; 82962; 83735; 83880; 84443; 84484; 85025; 93005; 93010; 93306; 94660; 96372; 96374; 99291; G0378; J1644; J1940; J2060; J3490; J7512; J7620

== ENCOUNTER → 2016-12-29 | Outpatient (CLI) | payer MEDICARE, OTHER ==
[~2016-12-29] MED LIST: REGADENOSON INJ 0.4 MG/5 ML DISP.SYRIN IV ONE
--- NOTE | 2016-12-29 18:27 | DRAGON STRESS TEST REPORT ---
Intravenous LexiScan Cardiolite stress test using single photon emmision computerized tomographic. Date of procedure:: 12/29/2016 Ordering Provider: Dr. Alex Stokes. Primary Care Physician: Dr. Turner Jimenez Indication:[ CAD.. And history of CHF Coronary risk factors: Diabetes mellitus type II hypertension, tobacco abuse, and age Resting EKG: Sinus rhythm. Within normal limits. Stress EKG:[] No changes of ischemia. The patient had no chest pain or chest discomfort, and there were no arrhythmias seen. Reason for termination: Protocol. Conclusions: Normal EKG and hemodynamic response to IV LexiScan. Nuclear data: At rest the patient was given 10.95 millicuries of technetium 99 sestamibi injected intravenously. As per protocol rest non gated SPECT images were obtained. Subsequently the patient was given intravenous LexiScan at a dose of 0.4 mg in 5 mL intravenously, followed by flush with normal saline. Subsequently the stress dose of 37.7 millicuries of technetium 99 sestamibi was injected intravenously. As per protocol stress gated images were obtained. Next Nuclear interpretation: Review of images showed that this is a mild perfusion defect in the stress images involving the basal basal inferior wall and part of mid inferior wall.. The rest of the segments of the myocardium had normal perfusion at rest, and normal perfusion post stress with IV LexiScan. All segments of the myocardium had normal motion, contraction, and thickening by gated study. T. I D. ratio was normal at 1.00. Computer read rest, and stress left ventricular ejection fraction were 51 %, and [49%, respectively. Visually both the stress and rest ejection fractions were normal, and greater than 55 %. 1. There imild scintigraphic evidence of LexiScan induced myocardial ischemia involving the basal inferior wall and part of the mid inferior wall. 2. There is no scintigraphic evidence of myocardial infarction/scar. [] Recommendations: 1.recommend cardiac catheterization if the patient continues to have chest pain. 2.Aggressive risk factor modification, and treating the underlying co- morbidities [] MTDD
== END ==
LOC: RAD 12-23 06:51
PROVIDERS: ATTEND Internal Medicine Cardiovascular Disease
DX: I50.32 Chronic diastolic (congestive) heart failure (principal); I10 Essential (primary) hypertension
CPT/HCPCS: 93017; 78452; A9500; J2785; Q9969

== ENCOUNTER 2017-01-13 08:07 | Observation (INO) | payer MEDICARE ==
[2017-01-13 09:41] LABS: ABSOLUTE BASOPHILS # (AUTO) 0.1 10^3/uL (0.0-0.2); ABSOLUTE EOSINOPHILS # (AUTO) 0.1 10^3/uL (0.0-0.6); ABSOLUTE MONOCYTES (AUTO) 0.5 10^3/uL (0.1-1.4); ABSOLUTE NEUT (AUTO) 4.8 10^3/uL (1.7-8.2); BASOPHILS % (AUTO) 0.8 % (0-2); HEMATOCRIT 42.1 % (36.0-47.0); HEMOGLOBIN 13.7 g/dL (12.0-15.5); LYMPHOCYTES % (AUTO) 15.7 % (13-45); MEAN CORPUSCULAR HEMOGLOBIN 27.5 pg (27.0-33.4); MEAN CORPUSCULAR HGB CONC 32.5 g/dL (32.0-36.0); MEAN CORPUSCULAR VOLUME 85 fl (80-97); MONOCYTES % (AUTO) 7.1 % (3-13); RED BLOOD COUNT 4.97 10^6/uL (3.72-5.28); RED CELL DISTRIBUTION WIDTH 15.6 % (11.5-14.0); SEGMENTED NEUTROPHILS % (AUTO) 75.4 % (42-78); WHITE BLOOD COUNT 6.4 10^3/uL (4.0-10.5)
[2017-01-13 09:53] LABS: ALANINE AMINOTRANSFERASE 32 U/L (9-52); ALBUMIN 3.7 g/dL (3.5-5.0); ALKALINE PHOSPHATASE 129 U/L (38-126); ANION GAP 9 (5-19); ASPARTATE AMINO TRANSFERASE 22 U/L (14-36); BILIRUBIN,DIRECT 0.4 mg/dL (0.0-0.4); BILIRUBIN,TOTAL 0.6 mg/dL (0.2-1.3); BLOOD UREA NITROGEN 10 mg/dL (7-20); CALCIUM 9.6 mg/dL (8.4-10.2); CARBON DIOXIDE 28 mmol/L (22-30); CHLORIDE 101 mmol/L (98-107); CREATINE KINASE 119 U/L (30-135); CREATININE RESULT 0.83 mg/dL (0.52-1.25); GLUCOSE 226 mg/dL (75-110); POTASSIUM 3.8 mmol/L (3.6-5.0); SODIUM 137.7 mmol/L (137-145); TOTAL PROTEIN 6.6 g/dL (6.3-8.2)
[2017-01-13 10:12] LABS: CREATINE KINASE MB 1.38 ng/mL (<4.55); TROPONIN I < 0.012 ng/mL
[2017-01-13] MEDS ORDERED: ASPIRIN 81 MG TABLET, CHEWABLE PO ONE (13:34)
--- NOTE | 2017-01-13 13:35 | ER Document Report ---
ED Neuro Symptoms/Deficit - General Chief Complaint: Slurred Speech Stated Complaint: SLURRED SPEECH Time Seen by Provider: 01/13/17 09:11 Mode of Arrival: Ambulatory Information source: Patient Notes: This is a 66-year-old female with a history of anxiety, schizophrenia brought into the emergency room for slurred speech, facial droop and upper extremity weakness. The patient states she was fine up until last night when she started noticing the slurred speech before going to bed. She states that when she woke up this morning, she felt like she had weakness on the right upper extremity and on the right face and she noticed a facial droop in the slurred speech was still there. TRAVEL OUTSIDE OF THE [place] IN LAST 30 DAYS: No - HPI Patient complains to provider of: Facial Droop, Speech Impairment Onset: Other - Last night Awoke with symptoms: Yes Duration: Better Quality of pain: No pain Severity: None Pain Level: Denies Context: None Loss of consciousness: No loss of consciousness Baseline Cognitive: Alert, oriented X 3 Baseline Gait: Walks w/o assistance Pre-existing weakness: No: Face, General, Hand, Lower extremity, Upper extremity Alert To: Name/Voice Patient Orientation: Person, Place, Time, Events Character of altered mental status: No: Agitated, Confused, Combative, Decreased responsiveness, Disoriented, Seizure activity, Trouble concentrating, Unchanged from baseline, Unresponsive New weakness: RUE Altered sensation: denies: LUE, LLE, RUE, RLE, L facial, R facial, General ( diffuse) Decreased ability to stand/walk: denies: Weak, Difficult, Off balance, Cannot walk, Cannot stand Associated symptoms: denies: Chest pain, Fever, Short of breath Similar symptoms previously: No Recently seen / treated by doctor: No - Related Data Allergies/Adverse Reactions: Sulfa (Sulfonamide Antibiotics) Allergy (Verified 01/13/17 08:38) Past Medical History - General Information source: Patient - Social History Smoking Status: Current Every Day Smoker Cigarette use (# per day): Yes - appetite today Chew tobacco use (# tins/day): No Frequency of alcohol use: None Drug Abuse: None Lives with: Family Family History: None, Reviewed & Not Pertinent Patient has suicidal ideation: No Patient has homicidal ideation: No - Past Medical History Cardiac Medical History: Reports: Hx Hypercholesterolemia, Hx Hypertension Pulmonary Medical History: Reports: Hx Asthma, Hx Bronchitis, Hx COPD Neurological Medical History: Endocrine Medical History: Reports: Hx Diabetes Mellitus Type 2 Renal/ Medical History: Denies: Hx Peritoneal Dialysis Malignancy Medical History: Reports: Hx Breast Cancer GI Medical History: Reports: Hx Gastroesophageal Reflux Disease Musculoskeltal Medical History: Reports Hx Arthritis Psychiatric Medical History: Reports: Hx Anxiety, Hx Depression, Hx Schizoaffective Disorder, Hx Schizophrenia Infectious Medical History: Past Surgical History: Reports: Hx Breast Surgery - lumpectomy to left breast, Hx Cholecystectomy, Hx Hysterectomy, Hx Orthopedic Surgery - Immunizations Hx Diphtheria, Pertussis, Tetanus Vaccination: Yes Hx Pneumococcal Vaccination: 09/05/00 Review of Systems - Review of Systems Constitutional: denies: Chills, Fever EENT: No symptoms reported Cardiovascular: No symptoms reported Respiratory: No symptoms reported Gastrointestinal: No symptoms reported Genitourinary: No symptoms reported Female Genitourinary: No symptoms reported Musculoskeletal: No symptoms reported Skin: No symptoms reported Hematologic/Lymphatic: No symptoms reported Neurological/Psychological: See HPI Physical Exam - Vital signs Vitals: Temp Pulse Resp BP Pulse Ox 97.7 F 75 16 121/72 93 01/13/17 08:19 01/13/17 08:19 01/13/17 08:19 01/13/17 08:19 01/13/17 08:19 Notes: Physical exam: GENERAL: 66-year-old female, sleeping and easily arousable, no acute distress HEAD: Atraumatic, normocephalic. EYES: Pupils equal round and reactive to light, extraocular movements intact, sclera anicteric, conjunctiva are normal. ENT: TMs normal, nares patent, oropharynx clear without exudates. Moist mucous membranes. NECK: Normal range of motion, supple without lymphadenopathy or JVD. LUNGS: Breath sounds clear to auscultation bilaterally and equal. No wheezes rales or rhonchi. HEART: Regular rate and rhythm without murmurs, rubs or gallops. ABDOMEN: Soft, normoactive bowel sounds. No tenderness to palpation. No guarding, no rebound. No masses appreciated. EXTREMITIES: Normal range of motion, no pitting or edema. No clubbing or cyanosis. NEUROLOGICAL: Patient is alert and can only responsive, she does not a month and her age, she is able open and close her eyes and her fists at the same time , horizontal gaze is good, visual younger are intact, no obvious facial palsy, patient's right upper arm appears to have slight drift, both the left upper extremity and bilateral legs are good, finger to nose is intact, sensory is grossly intact, best language shows mild fluency loss. No dysarthria ( confirmed with ), no inattention or extinction. NIH is 2. PSYCH: Normal mood, normal affect. SKIN: Warm, Dry, normal turgor, no rashes or lesions noted. Course - Vital Signs Vital signs: Temp Pulse Resp BP Pulse Ox 97.7 F 92 18 156/76 H 94 01/13/17 08:19 01/13/17 13:47 01/13/17 14:07 01/13/17 14:07 01/13/17 14:07 - Laboratory Result Diagrams: 01/13/17 08:20 01/13/17 08:20 Laboratory results interpreted by me: 01/13/17 01/13/17 08:20 08:20 RDW 15.6 H Glucose 226 H Alkaline Phosphatase 129 H - Diagnostic Test Radiology reviewed: Image reviewed, Reports reviewed - Chest x-ray clear. Head CT no obvious insult (limited). - EKG Interpretation by Me Rate: Normal Rhythm: NSR - EKG shows normal sinus rhythm with a ventricular rate of 76, left axis deviated bill, no acute ST-T wave changes Critical Care Note - Critical Care Note Total time excluding time spent on procedures (mins): 60 Discharge - Discharge Clinical Impression: CVA Condition: Stable Disposition: ADMITTED INPATIENT Admitting Provider: Hospitalist Unit Admitted: [facility]
--- NOTE | 2017-01-13 13:52 | EKG REPORT ---
SEVERITY:- ABNORMAL ECG - SINUS RHYTHM LEFT ANTERIOR FASCICULAR BLOCK : Confirmed by: Maegan Page 13-Jan-2017 13:51:43
[2017-01-13] MEDS ORDERED: ACETAMINOPHEN 325 MG TABLET PO PRN (13:56)
[2017-01-13] MEDS ORDERED: ONDANSETRON HCL INJ/PF 4 MG/2 ML SDV IV PRN (13:56)
--- NOTE | 2017-01-13 14:40 | PDOC H&P ---
History of Present Illness Admission Date/PCP: MIRIAM GALARZA MD Patient complains of: Right-sided facial droop, slurred speech and right upper extremity weakness History of Present Illness: ALEJANDRA CHENG is a 66 year old female with past medical history of schizophrenia , anxiety, dyslipidemia, coronary artery disease, essential hypertension and diabetes mellitus type II; presents to [facility]'s emergency room earlier this this morning with complaints of right-sided facial droop, slurred speech and right upper extremity weakness that began last evening and worsened overnight. Patient states she was fine prior to going to bed last evening. She did notice a slight right-sided facial droop during the night. This morning she noticed increasing weakness of the right arm and has been noticed slurred speech. She has no prior history of CVA. She denies any problems swallowing. She denies any weakness in her right lower extremity. She states presently she feels her symptoms have been resolving. Past Medical History Cardiac Medical History: Reports: Coronary Artery Disease, Hyperlipidema, Hypertension Pulmonary Medical History: Reports: Asthma, Bronchitis, Chronic Obstructive Pulmonary Disease (COPD) EENT Medical History: Reports: None Neurological Medical History: Reports: None Endocrine Medical History: Reports: Diabetes Mellitus Type 2 Renal/ Medical History: Reports: None Malignancy Medical History: Reports: Breast Cancer GI Medical History: Reports: Gastroesophageal Reflux Disease Musculoskeltal Medical History: Reports: Arthritis Skin Medical History: Reports: None Psychiatric Medical History: Reports: Depression, Schizoaffective Disorder Traumatic Medical History: Reports: None Hematology: Denies: Anemia, Sickle Cell Disease Infectious Medical History: Reports: None Past Surgical History Past Surgical History: Reports: Cholecystectomy, Hysterectomy, Orthopedic Surgery Denies: Amputation Social History Information Source: Patient Lives with: Spouse/Significant other Smoking Status: Current Every Day Smoker Cigarettes Packs Per Day: 1 Number of Years Smokin Last Time Smoked: yesterday Frequency of Alcohol Use: None Hx Recreational Drug Use: No Drugs: None Hx Prescription Drug Abuse: No - Advance Directive Resuscitation Status: Full Code Surrogate healthcare decision maker:: is her health care surrogate decision maker Family History Family History: Hypertension Parental Family History Reviewed: Yes Children Family History Reviewed: Yes Sibling(s) Family History Reviewed.: Yes Medication/Allergy Home Medications: Cetirizine HCl [Zyrtec] 10 mg PO DAILY 11/23/16 Fluoxetine HCl [Prozac 20 mg Capsule] 20 mg PO DAILY 11/23/16 Fluphenazine HCl 10 mg PO DAILY 11/23/16 Linagliptin [Tradjenta] 5 mg PO DAILY 11/23/16 Lorazepam [Ativan 0.5 mg Tablet] 0.5 mg PO BID 11/23/16 Omeprazole 20 mg PO BID 11/23/16 Albuterol Sulfate [Proair HFA Inhalation Aerosol 8.5 gm MDI] 1 puff IH Q4 PRN # 1 mdi 11/25/16 Albuterol Sulfate [Ventolin 0.083% Neb 2.5 mg/3 mL Ampul] 2.5 mg NEB RTQ6HP PRN #60 vial.neb 11/25/16 Doxycycline Hyclate [Vibramycin 100 mg Tablet] 100 mg PO Q12 #10 tablet Furosemide [Lasix] 40 mg PO QAM #30 tablet 11/25/16 Potassium Chloride [Klor-Con 10 Meq Tablet.sa] 20 meq PO DAILY #60 tablet.sa Prednisone [Deltasone 20 mg Tablet] 20 mg PO DAILY #3 tablet 11/25/16 Allergies/Adverse Reactions: Sulfa (Sulfonamide Antibiotics) Allergy (Verified 01/13/17 08:38) Review of Systems Constitutional: ABSENT: chills, fever(s), headache(s), weight gain, weight loss Eyes: ABSENT: visual disturbances Cardiovascular: ABSENT: chest pain, dyspnea on exertion, edema, orthropnea, palpitations Respiratory: ABSENT: cough, hemoptysis Gastrointestinal: ABSENT: abdominal pain, constipation, diarrhea, hematemesis, hematochezia, nausea, vomiting Genitourinary: ABSENT: dysuria, hematuria Musculoskeletal: ABSENT: joint swelling Integumentary: ABSENT: rash, wounds Neurological: PRESENT: focal weakness - right upper arm, slurred speech, weakness, other Psychiatric: PRESENT: anxiety, depression Endocrine: ABSENT: cold intolerance, heat intolerance, polydipsia, polyuria Hematologic/Lymphatic: ABSENT: easy bleeding, easy bruising Physical Exam Vital Signs: Temp Pulse Resp BP Pulse Ox 97.7 F 92 20 123/70 94 01/13/17 08:19 01/13/17 13:47 01/13/17 13:47 01/13/17 13:47 01/13/17 13:47 Intake & Output 01/12/17 01/13/17 01/14/17 06:59 06:59 06:59 Weight 78.018 kg General appearance: PRESENT: no acute distress, well-developed, well-nourished Head exam: PRESENT: atraumatic, normocephalic Eye exam: PRESENT: conjunctiva pink, EOMI, PERRLA. ABSENT: scleral icterus Ear exam: PRESENT: normal external ear exam Mouth exam: PRESENT: moist, tongue midline Neck exam: ABSENT: carotid bruit, JVD, lymphadenopathy, thyromegaly Respiratory exam: PRESENT: accessory muscle use Cardiovascular exam: PRESENT: RRR. ABSENT: diastolic murmur, rubs, systolic murmur Pulses: PRESENT: normal dorsalis pedis pul Vascular exam: PRESENT: normal capillary refill GI/Abdominal exam: PRESENT: normal bowel sounds, soft. ABSENT: distended, guarding, mass, organolmegaly, rebound, tenderness Rectal exam: PRESENT: deferred Extremities exam: PRESENT: full ROM. ABSENT: calf tenderness, clubbing, pedal edema Neurological exam: PRESENT: alert, oriented to person, oriented to place, oriented to time, CN II-XII grossly intact, other - mild right sided facial droop Psychiatric exam: PRESENT: appropriate affect, normal mood. ABSENT: homicidal ideation, suicidal ideation Skin exam: PRESENT: dry, intact, warm. ABSENT: cyanosis, rash Results Laboratory Results: 01/13/17 08:20 01/13/17 08:20 01/13/17 01/13/17 08:20 08:20 WBC 6.4 RBC 4.97 Hgb 13.7 Hct 42.1 MCV 85 MCH 27.5 MCHC 32.5 RDW 15.6 H Plt Count 338 Seg Neutrophils % 75.4 Lymphocytes % 15.7 Monocytes % 7.1 Eosinophils % 1.0 Basophils % 0.8 Absolute Neutrophils 4.8 Absolute Lymphocytes 1.0 Absolute Monocytes 0.5 Absolute Eosinophils 0.1 Absolute Basophils 0.1 Sodium 137.7 Potassium 3.8 Chloride 101 Carbon Dioxide 28 Anion Gap 9 BUN 10 Creatinine 0.83 Est GFR ( Amer) > 60 Est GFR (Non-Af Amer) > 60 Glucose 226 H Calcium 9.6 Total Bilirubin 0.6 AST 22 ALT 32 Alkaline Phosphatase 129 H Total Protein 6.6 Albumin 3.7 01/13/17 01/13/17 08:20 08:20 Creatine Kinase 119 CK-MB (CK-2) 1.38 Troponin I < 0.012 Impressions: Chest X-Ray 01/13/17 09:19 IMPRESSION: NO ACUTE RADIOGRAPHIC FINDING IN THE CHEST. Head CT 01/13/17 09:20 IMPRESSION: Very limited negative study. Motion artifact throughout the scan Assessment & Plan - Diagnosis (1) CVA (cerebral vascular accident) Qualifiers: Laterality of affected vessel: right Is this a current diagnosis for this admission?: YesPlan: Patient with mild right sided facial droop, right upper extremity weakness has resolved. CT of the head is unremarkable. Will obtain MRI of the head and carotid duplex. (2) Diabetes Qualifiers: Diabetes mellitus type: type 2 Diabetes mellitus complication status: without complication Diabetes mellitus extermination inspector insulin use: without extermination inspector use Qualified Code(s): E11.9 - Type 2 diabetes mellitus without complications Is this a current diagnosis for this admission?: YesPlan: Continue home medications and sliding scale insulin (3) Hypertension Qualifiers: Hypertension type: essential hypertension Qualified Code(s): I10 - Essential (primary) hypertension Is this a current diagnosis for this admission?: YesPlan: Continue home medication (4) Dyslipidemia Is this a current diagnosis for this admission?: YesPlan: Continue statin (5) Tobacco abuse Is this a current diagnosis for this admission?: YesPlan: Counseled. Nicotine transdermal replacement (6) Schizophrenia Qualifiers: Schizophrenia type: undifferentiated schizophrenia Qualified Code(s) : F20.3 - Undifferentiated schizophrenia Is this a current diagnosis for this admission?: YesPlan: Continue home medications - Time Time Spent: 50 to 70 Minutes Critical Time spent with patient: 35 or more minutes Medications reviewed and adjusted accordingly: Yes
[2017-01-13] MEDS: HEPARIN SOD (PORCINE) 5,000 UNIT/ML 1 ML SYRINGE SUBCUT SCH ×2 (15:00→23:31)
[2017-01-13] MEDS ORDERED: DEXTROSE 50%-WATER 25 GM/50 ML DISP.SYRIN IV PRN ×2 (15:30)
[2017-01-13] MEDS ORDERED: GLUCAGON,HUMAN RECOMB 1 MG INJ IM PRN (15:30)
[2017-01-13] MEDS ORDERED: DEXTROSE 40% GEL 15 GM TUBE PO PRN ×2 (15:30)
[2017-01-13] MEDS ORDERED: INSULIN LISPRO 100 UNIT/ML 3 ML VIAL SUBCUT PRN (15:30)
[2017-01-13] MEDS ORDERED: LORAZEPAM INJ 2 MG/1 ML VIAL IV PRN (16:15)
[2017-01-13] MEDS ORDERED: SIMVASTATIN 40 MG TABLET PO SCH (22:00)
[2017-01-13] MEDS: FAMOTIDINE 20 MG TABLET PO SCH (23:30)
[2017-01-14] MEDS ORDERED: LORAZEPAM INJ 2 MG/1 ML VIAL IV ONE (03:00)
[2017-01-14] MEDS: HEPARIN SOD (PORCINE) 5,000 UNIT/ML 1 ML SYRINGE SUBCUT SCH (06:05)
[2017-01-14 07:38] LABS: ABSOLUTE BASOPHILS # (AUTO) 0.1 10^3/uL (0.0-0.2); ABSOLUTE EOSINOPHILS # (AUTO) 0.1 10^3/uL (0.0-0.6); ABSOLUTE LYMPHOCYTES (AUTO) 1.9 10^3/uL (0.5-4.7); ABSOLUTE MONOCYTES (AUTO) 0.6 10^3/uL (0.1-1.4); ABSOLUTE NEUT (AUTO) 4.7 10^3/uL (1.7-8.2); EOSINOPHILS % (AUTO) 1.7 % (0-6); HEMATOCRIT 42.3 % (36.0-47.0); HEMOGLOBIN 13.7 g/dL (12.0-15.5); HGB HCT DIFFERENCE -1.2; LYMPHOCYTES % (AUTO) 25.8 % (13-45); MEAN CORPUSCULAR HEMOGLOBIN 27.1 pg (27.0-33.4); MEAN CORPUSCULAR HGB CONC 32.3 g/dL (32.0-36.0); MEAN CORPUSCULAR VOLUME 84 fl (80-97); MONOCYTES % (AUTO) 7.8 % (3-13); RED BLOOD COUNT 5.04 10^6/uL (3.72-5.28); RED CELL DISTRIBUTION WIDTH 15.5 % (11.5-14.0); SEGMENTED NEUTROPHILS % (AUTO) 63.7 % (42-78); WHITE BLOOD COUNT 7.4 10^3/uL (4.0-10.5)
[2017-01-14 07:53] LABS: ALANINE AMINOTRANSFERASE 33 U/L (9-52); ALBUMIN 4.1 g/dL (3.5-5.0); ALKALINE PHOSPHATASE 127 U/L (38-126); ANION GAP 11 (5-19); ASPARTATE AMINO TRANSFERASE 23 U/L (14-36); BILIRUBIN,DIRECT 0.3 mg/dL (0.0-0.4); BILIRUBIN,TOTAL 0.6 mg/dL (0.2-1.3); BLOOD UREA NITROGEN 12 mg/dL (7-20); CALCIUM 9.5 mg/dL (8.4-10.2); CARBON DIOXIDE 27 mmol/L (22-30); CHLORIDE 102 mmol/L (98-107); CHOLESTEROL 132.84 mg/dL (0-200); CREATININE RESULT 0.72 mg/dL (0.52-1.25); Direct HDL 47 mg/dL (>40); GLUCOSE 125 mg/dL (75-110); POTASSIUM 4.5 mmol/L (3.6-5.0); SODIUM 139.6 mmol/L (137-145); TOTAL PROTEIN 6.9 g/dL (6.3-8.2); TRIGLYCERIDES 63 mg/dL (<150)
[2017-01-14 08:04] LABS: DIRECT LDL 56 mg/dL (<100)
[2017-01-14 08:31] VITALS: BP 108/75
[2017-01-14] MEDS: FAMOTIDINE 20 MG TABLET PO SCH (09:08)
[2017-01-14] MEDS ORDERED: ASPIRIN 325 MG TABLET, ENT COATED PO SCH (10:00)
--- NOTE | 2017-01-14 11:22 | PDOC DISCHARGE SUMMARY ---
General - Admit/Disc Date/PCP Admission Date/Primary Care Provider: 01/13/17 13:56 MIRIAM GALARZA MD Discharge Date: 01/14/17 - Discharge Diagnosis (1) CVA (cerebral vascular accident) Is this a current diagnosis for this admission?: YesSummary: CVA ruled out, MRI showed no CVA (2) Diabetes Is this a current diagnosis for this admission?: YesSummary: Continue current medications (3) Hypertension Is this a current diagnosis for this admission?: YesSummary: Continue current medications (4) Dyslipidemia Is this a current diagnosis for this admission?: Yes (5) Tobacco abuse Is this a current diagnosis for this admission?: YesSummary: Counseled on need to stop smoking (6) Schizophrenia Is this a current diagnosis for this admission?: YesSummary: Continue home medications - Additional Information Resuscitation Status: Full Code Discharge Diet: Diabetic Discharge Activity: Activity As Tolerated, Balance Activity w/Rest Home Medications: Albuterol Sulfate [Proair HFA] 1 puff IH Q4HP PRN 01/13/17 Atorvastatin Calcium [Lipitor 40 mg Tablet] 40 mg PO QHS 01/13/17 Carvedilol [Coreg 3.125 mg Tablet] 3.125 mg PO Q12 01/13/17 Cetirizine HCl [Zyrtec] 10 mg PO DAILY 01/13/17 Fluoxetine HCl [Prozac] 20 mg PO DAILY 01/13/17 Fluphenazine Decanoate 25 mg IJ [id number] 01/13/17 Fluphenazine HCl 10 mg PO DAILY 01/13/17 Furosemide [Lasix] 40 mg PO DAILY 01/13/17 Isosorbide Mononitrate [Isosorbide Mononitrate ER] 30 mg PO DAILY 01/13/17 Linagliptin [Tradjenta] 5 mg PO DAILY 01/13/17 Lisinopril [Prinivil 5 mg Tablet] 5 mg PO DAILY 01/13/17 Lorazepam [Ativan 0.5 mg Tablet] 0.5 mg PO BIDP PRN 01/13/17 Multivitamins with Iron [One Daily Multivitamin] 1 each PO DAILY 01/13/17 Potassium Chloride [Klor-Con 10 Meq Tablet.sa] 20 meq PO DAILY 01/13/17 Acetaminophen [Tylenol 325 mg Tablet] 650 mg PO Q4HP PRN tablet 01/14/17 Aspirin [Ecotrin 325 mg EC Tablet] 325 mg PO DAILY tabec 01/14/17 History of Present Illness Patient complains of: Right facial droop and right arm weakness History of Present Illness: ALEJANDRA CHENG is a 66 year old female with past medical history of schizophrenia , anxiety, dyslipidemia, coronary artery disease, essential hypertension and diabetes mellitus type II; presents to [facility]'s emergency room earlier this this morning with complaints of right-sided facial droop, slurred speech and right upper extremity weakness that began last evening and worsened overnight. Patient states she was fine prior to going to bed last evening. She did notice a slight right-sided facial droop during the night. This morning she noticed increasing weakness of the right arm and has been noticed slurred speech. She has no prior history of CVA. She denies any problems swallowing. She denies any weakness in her right lower extremity. She states presently she feels her symptoms have been resolving. Hospital Course Hospital Course: Patient was admitted to the hospitalist service on telemetry. Her symptoms at time of admission had resolved. She underwent MRI of the head which was unremarkable for any CVA or abnormalities. She underwent carotid duplex showed no significant stenosis. She had no issues overnight. She was seen by speech therapy this morning. They feel she could benefit from some outpatient speech therapy. She has no weakness no facial droop this morning. Her is at bedside, patient feels ready for discharge. Physical Exam Vital Signs: Temp Pulse Resp BP Pulse Ox 98.0 F 84 18 108/75 98 01/14/17 08:29 01/14/17 08:29 01/14/17 08:29 01/14/17 08:29 01/14/17 08:29 Intake & Output 01/13/17 01/14/17 01/15/17 06:59 06:59 06:59 Intake Total 432 Balance 432 Weight 76.4 kg General appearance: PRESENT: no acute distress, well-developed, well-nourished Head exam: PRESENT: atraumatic, normocephalic Eye exam: PRESENT: conjunctiva pink, EOMI, PERRLA. ABSENT: scleral icterus Ear exam: PRESENT: normal external ear exam Mouth exam: PRESENT: moist, tongue midline Neck exam: ABSENT: carotid bruit, JVD, lymphadenopathy, thyromegaly Respiratory exam: PRESENT: clear to auscultation keyana. ABSENT: rales, rhonchi, wheezes Cardiovascular exam: PRESENT: RRR. ABSENT: diastolic murmur, rubs, systolic murmur Pulses: PRESENT: normal dorsalis pedis pul GI/Abdominal exam: PRESENT: normal bowel sounds, soft. ABSENT: distended, guarding, mass, organolmegaly, rebound, tenderness Rectal exam: PRESENT: deferred Extremities exam: PRESENT: full ROM. ABSENT: calf tenderness, clubbing, pedal edema Musculoskeletal exam: PRESENT: ambulatory Neurological exam: PRESENT: alert, awake, oriented to person, oriented to place , oriented to time, oriented to situation, CN II-XII grossly intact. ABSENT: motor sensory deficit Psychiatric exam: PRESENT: anxious Focused psych exam: PRESENT: flight of ideas Skin exam: PRESENT: dry, intact, warm. ABSENT: cyanosis, rash Results Laboratory Results: 01/14/17 06:29 01/14/17 06:29 01/14/17 01/14/17 06:29 06:29 WBC 7.4 RBC 5.04 Hgb 13.7 Hct 42.3 MCV 84 MCH 27.1 MCHC 32.3 RDW 15.5 H Plt Count 366 Seg Neutrophils % 63.7 Lymphocytes % 25.8 Monocytes % 7.8 Eosinophils % 1.7 Basophils % 1.0 Absolute Neutrophils 4.7 Absolute Lymphocytes 1.9 Absolute Monocytes 0.6 Absolute Eosinophils 0.1 Absolute Basophils 0.1 Sodium 139.6 Potassium 4.5 Chloride 102 Carbon Dioxide 27 Anion Gap 11 BUN 12 Creatinine 0.72 Est GFR ( Amer) > 60 Est GFR (Non-Af Amer) > 60 Glucose 125 H Calcium 9.5 Total Bilirubin 0.6 AST 23 ALT 33 Alkaline Phosphatase 127 H Total Protein 6.9 Albumin 4.1 Triglycerides 63 Cholesterol 132.84 LDL Cholesterol Direct 56 VLDL Cholesterol 13.0 HDL Cholesterol 47 Impressions: Chest X-Ray 01/13/17 09:19 IMPRESSION: NO ACUTE RADIOGRAPHIC FINDING IN THE CHEST. Head CT 01/13/17 09:20 IMPRESSION: Very limited negative study. Motion artifact throughout the scan Carotid Doppler Study 01/13/17 13:59 IMPRESSION: NO HEMODYNAMICALLY SIGNIFICANT STENOSIS. Head MRI 01/13/17 14:16 IMPRESSION: MINIMAL MICROVASCULAR ISCHEMIC CHANGE. Susceptibility artifact from dental prosthesis over the anterior skullbase, seen on the diffusion series , otherwiseNegative for acute or sub-acute infarction.. Qualifiers PATEINT BEING DISCHARGED WITH ANY OF THE FOLLOWING DIAGNOSIS?: No Plan Discharge Plan: Home with Time Spent: Less than 30 Minutes
== END 2017-01-14 09:36 | disposition home health service (06) ==
LOC: ER 08:07 → INTOOBSV 13:56 → EH 13:56 → 3N 21:12
PROVIDERS: ADMIT Internal Medicine; ATTEND Internal Medicine
DX: I63.9 Cerebral infarction, unspecified (principal); E11.9 Type 2 diabetes mellitus without complications; I10 Essential (primary) hypertension; E78.5 Hyperlipidemia, unspecified; F20.3 Undifferentiated schizophrenia; F41.9 Anxiety disorder, unspecified; I25.10 Atherosclerotic heart disease of native coronary artery without angina pectoris; F17.210 Nicotine dependence, cigarettes, uncomplicated; J45.909 Unspecified asthma, uncomplicated; Z79.82 Long term (current) use of aspirin; Z79.899 Other long term (current) drug therapy; Z85.3 Personal history of malignant neoplasm of breast; Z90.49 Acquired absence of other specified parts of digestive tract; Z90.710 Acquired absence of both cervix and uterus; Z82.49 Family history of ischemic heart disease and other diseases of the circulatory system
CPT/HCPCS: 93005; 99291; 36415 ×2; 82553; 82962 ×2; 82550; 85025 ×2; 85610; 80053 ×2; 84484; 80061; 93880; 70551; 71010; 70450; 93010; 92523; G0378 ×3; A9270 ×5; J1644 ×2; J2060; J3490 ×2; G9162; G9163; G9164

== ENCOUNTER 2017-02-12 12:42 | Emergency (ER) | payer MEDICARE ==
[2017-02-12] MEDS ORDERED: ASPIRIN 81 MG TABLET, CHEWABLE PO ONE (12:50)
[2017-02-12] MEDS ORDERED: ALBUTEROL SULFATE 0.083% NEB 2.5 MG/3 ML AMPUL NEB ONE (13:04)
[2017-02-12 13:38] LABS: ABSOLUTE EOSINOPHILS # (AUTO) 0.1 10^3/uL (0.0-0.6); ABSOLUTE LYMPHOCYTES (AUTO) 1.6 10^3/uL (0.5-4.7); ABSOLUTE MONOCYTES (AUTO) 0.6 10^3/uL (0.1-1.4); BASOPHILS % (AUTO) 0.7 % (0-2); EOSINOPHILS % (AUTO) 0.8 % (0-6); HEMATOCRIT 40.4 % (36.0-47.0); HGB HCT DIFFERENCE -1.4; LYMPHOCYTES % (AUTO) 25.1 % (13-45); MEAN CORPUSCULAR HEMOGLOBIN 27.6 pg (27.0-33.4); MEAN CORPUSCULAR HGB CONC 32.3 g/dL (32.0-36.0); MEAN CORPUSCULAR VOLUME 85 fl (80-97); MONOCYTES % (AUTO) 9.5 % (3-13); RED BLOOD COUNT 4.73 10^6/uL (3.72-5.28); RED CELL DISTRIBUTION WIDTH 15.6 % (11.5-14.0); SEGMENTED NEUTROPHILS % (AUTO) 63.9 % (42-78); WHITE BLOOD COUNT 6.3 10^3/uL (4.0-10.5)
[2017-02-12 13:48] LABS: VENOUS BLOOD BASE EXCESS 4.2 mmol/L; VENOUS BLOOD HCO3 29.7 mmol/L (20-32); VENOUS BLOOD PH 7.41 (7.30-7.42)
[2017-02-12 13:54] LABS: ALANINE AMINOTRANSFERASE 40 U/L (9-52); ALBUMIN 3.5 g/dL (3.5-5.0); ALKALINE PHOSPHATASE 141 U/L (38-126); ANION GAP 8 (5-19); ASPARTATE AMINO TRANSFERASE 34 U/L (14-36); BILIRUBIN,DIRECT 0.3 mg/dL (0.0-0.4); BILIRUBIN,TOTAL 0.5 mg/dL (0.2-1.3); BLOOD UREA NITROGEN 7 mg/dL (7-20); CALCIUM 8.6 mg/dL (8.4-10.2); CARBON DIOXIDE 28 mmol/L (22-30); CHLORIDE 101 mmol/L (98-107); CREATINE KINASE 94 U/L (30-135); CREATININE RESULT 0.66 mg/dL (0.52-1.25); GLUCOSE 186 mg/dL (75-110); MAGNESIUM 1.7 mg/dL (1.6-2.3); POTASSIUM 3.7 mmol/L (3.6-5.0); SODIUM 137.4 mmol/L (137-145); TOTAL PROTEIN 6.3 g/dL (6.3-8.2)
--- NOTE | 2017-02-12 14:25 | RADIOLOGY REPORT (SQ) ---
EXAM DESCRIPTION: CHEST SINGLE VIEW COMPLETED DATE/TIME: 02/12/2017 2:18 pm REASON FOR STUDY: sob COMPARISON: 01/13/2017 EXAM PARAMETERS: NUMBER OF VIEWS: One view. TECHNIQUE: Single frontal radiographic view of the chest acquired. RADIATION DOSE: NA LIMITATIONS: None. FINDINGS: LUNGS AND PLEURA: No new opacities, masses or pneumothorax. No pleural effusion. MEDIASTINUM AND HILAR STRUCTURES: No masses. Contour normal. HEART AND VASCULAR STRUCTURES: Heart normal in size. Normal vasculature. BONES: No acute findings. HARDWARE: Stable. OTHER: No other significant finding. IMPRESSION: NO ACUTE CARDIOPULMONARY PROCESS. NO SIGNIFICANT CHANGE FROM PRIOR STUDY. TECHNICAL DOCUMENTATION: JOB ID: [id number]
[2017-02-12] MEDS ORDERED: PREDNISONE 20 MG TABLET PO ONE (14:44)
[2017-02-12] MEDS ORDERED: ALBUTEROL SULFATE HFA (90 MCG/PUFF) 8 GM MDI (1 MDI/ER DISP) IH ONE (14:44)
--- NOTE | 2017-02-12 14:47 | ER Document Report ---
ED General - General Chief Complaint: Shortness Of Breath Stated Complaint: RESPIRATORY DISTRESS Time Seen by Provider: 02/12/17 12:50 TRAVEL OUTSIDE OF THE [place] IN LAST 30 DAYS: No - HPI Patient complains to provider of: Difficulty in breathing Notes: Patient coming in today for difficulty breathing. Patient said that by EMS. No signs of hypoxia. Patient was given albuterol treatment and Solu-Medrol prior to arrival. Upon arrival patient's again shows no signs of hypoxia or tachypnea. Patient states no coughing of productive. No chills no nausea no vomiting or chest pain no abdominal pain. Patient was to be in no obvious distress - Related Data Allergies/Adverse Reactions: Sulfa (Sulfonamide Antibiotics) Allergy (Verified 01/13/17 08:38) Past Medical History - Social History Smoking Status: Unknown if Ever Smoked Family History: None, Reviewed & Not Pertinent - Past Medical History Cardiac Medical History: Reports: Hx Hypercholesterolemia, Hx Hypertension Pulmonary Medical History: Reports: Hx Asthma, Hx Bronchitis, Hx COPD Neurological Medical History: Endocrine Medical History: Reports: Hx Diabetes Mellitus Type 2 Renal/ Medical History: Denies: Hx Peritoneal Dialysis Malignancy Medical History: Reports: Hx Breast Cancer GI Medical History: Reports: Hx Gastroesophageal Reflux Disease Musculoskeltal Medical History: Reports Hx Arthritis Psychiatric Medical History: Reports: Hx Anxiety, Hx Depression, Hx Schizoaffective Disorder, Hx Schizophrenia Infectious Medical History: Past Surgical History: Reports: Hx Breast Surgery - lumpectomy to left breast, Hx Cholecystectomy, Hx Hysterectomy, Hx Orthopedic Surgery - Immunizations Hx Diphtheria, Pertussis, Tetanus Vaccination: Yes Hx Pneumococcal Vaccination: 09/05/00 Review of Systems - Review of Systems Constitutional: No symptoms reported EENT: No symptoms reported Cardiovascular: No symptoms reported Respiratory: Short of breath, Wheezing Gastrointestinal: No symptoms reported Genitourinary: No symptoms reported Female Genitourinary: No symptoms reported Musculoskeletal: No symptoms reported Skin: No symptoms reported Hematologic/Lymphatic: No symptoms reported Neurological/Psychological: No symptoms reported -: Yes All other systems reviewed and negative Physical Exam - Vital signs Vitals: Pulse Ox 97 02/12/17 13:03 Interpretation: Normal - General General appearance: Appears well, Alert - HEENT Head: Normocephalic, Atraumatic Eyes: Normal Pupils: PERRL - Respiratory Respiratory status: No respiratory distress Chest status: Nontender Breath sounds: Wheezing Chest palpation: Normal - Cardiovascular Rhythm: Regular Heart sounds: Normal auscultation Murmur: No - Abdominal Inspection: Normal Distension: No distension Bowel sounds: Normal Tenderness: Nontender Organomegaly: No organomegaly - Back Back: Normal, Nontender - Extremities General upper extremity: Normal inspection, Nontender, Normal color, Normal ROM , Normal temperature General lower extremity: Normal inspection, Nontender, Normal color, Normal ROM , Normal temperature, Normal weight bearing. No: Misty's sign - Neurological Neuro grossly intact: Yes Cognition: Normal Orientation: AAOx4 [place] Coma Scale Eye Opening: Spontaneous [place] Coma Scale Verbal: Oriented [place] Coma Scale Motor: Obeys Commands Aurelio Coma Scale Total: 15 Speech: Normal Motor strength normal: LUE, RUE, LLE, RLE Sensory: Normal - Psychological Associated symptoms: Normal affect, Normal mood - Skin Skin Temperature: Warm Skin Moisture: Dry Skin Color: Normal Course - Re-evaluation Re-evalutation: 02/12/17 15:18 02/12/17 15:23 Patient coming in for difficulty breathing. Patient shows no signs of hypoxia no signs of respiratory distress at this time. More likely mild COPD exacerbation. Patient will be given bronchodilator steroids to home the patient was encouraged follow-up with primary care physician. - Vital Signs Vital signs: Temp Pulse Resp BP Pulse Ox 18 174/90 H 97 02/12/17 14:49 02/12/17 14:49 02/12/17 14:49 - Laboratory Result Diagrams: 02/12/17 13:17 02/12/17 13:17 Laboratory results interpreted by me: 02/12/17 02/12/17 13:17 13:17 RDW 15.6 H Glucose 186 H Alkaline Phosphatase 141 H Discharge - Discharge Clinical Impression: Tobacco abuse COPD (chronic obstructive pulmonary disease) Qualifiers: COPD type: unspecified COPD Qualified Code(s): J44.9 - Chronic obstructive pulmonary disease, unspecified Condition: Good Disposition: HOME, SELF-CARE Instructions: Chronic Obstructive Lung Disease ([facility]), Stop Smoking ([facility]) Additional Instructions: stop smoking. Please use the inhaler that we gave you 2 puffs every 4 hours for the next 5 days. Please continue your other medications as prescribed. Prescriptions: Prednisone [Deltasone 20 mg Tablet] 2 tab PO DAILY 3 Days Forms: Smoking Cessation Education
[2017-02-12 15:01] VITALS: BP 174/90
--- NOTE | 2017-02-14 09:42 | EKG REPORT ---
SEVERITY:- ABNORMAL ECG - SINUS RHYTHM LEFT ANTERIOR FASCICULAR BLOCK : Confirmed by: Maegan Page 14-Feb-2017 09:42:17
== END 2017-02-12 14:56 | disposition home or self-care (01) ==
LOC: ER 12:42
DX: J44.9 Chronic obstructive pulmonary disease, unspecified (principal); I10 Essential (primary) hypertension; E11.9 Type 2 diabetes mellitus without complications; Z85.3 Personal history of malignant neoplasm of breast; Z88.2 Allergy status to sulfonamides
CPT/HCPCS: 93005; 94640; 99285; 36415; 82550; 83735; 85025; 80053; 82803; 71010; 93010; A9270 ×2; J3490; J7512

== ENCOUNTER 2017-02-15 06:30 | Inpatient (IN) | payer MEDICARE ==
--- NOTE | 2017-02-15 06:38 | ER Document Report ---
ED General - General Chief Complaint: Shortness Of Breath Stated Complaint: SHORTNESS OF BREATH Time Seen by Provider: 02/15/17 06:34 Mode of Arrival: Medic Information source: Patient Notes: 66-year-old female hx of copd presents with complaints of difficulty breathing shortness of breath. Patient has a history of COPD was found satting 71% on room air, patient had taken 3 albuterol treatments at home prior to EMS arrival , she was given to further duo nebs and Solu-Medrol 125. Patient has been seen recently for her shortness of breath TRAVEL OUTSIDE OF THE [place] IN LAST 30 DAYS: No - HPI Onset: Last week Onset/Duration: Persistent, Worse Quality of pain: No pain Severity: Severe Pain Level: Denies Associated symptoms: Nonproductive cough, Shortness of breath Exacerbated by: Movement, Walking, Coughing Relieved by: Denies Similar symptoms previously: Yes Recently seen / treated by doctor: Yes - Related Data Allergies/Adverse Reactions: Sulfa (Sulfonamide Antibiotics) Allergy (Verified 01/13/17 08:38) Past Medical History - Social History Smoking Status: Current Every Day Smoker Cigarette use (# per day): Yes Chew tobacco use (# tins/day): No Smoking Education Provided: No Family History: None, Reviewed & Not Pertinent - Past Medical History Cardiac Medical History: Reports: Hx Hypercholesterolemia, Hx Hypertension Pulmonary Medical History: Reports: Hx Asthma, Hx Bronchitis, Hx COPD Neurological Medical History: Endocrine Medical History: Reports: Hx Diabetes Mellitus Type 2 Renal/ Medical History: Denies: Hx Peritoneal Dialysis Malignancy Medical History: Reports: Hx Breast Cancer GI Medical History: Reports: Hx Gastroesophageal Reflux Disease Musculoskeltal Medical History: Reports Hx Arthritis Psychiatric Medical History: Reports: Hx Anxiety, Hx Depression, Hx Schizoaffective Disorder, Hx Schizophrenia Infectious Medical History: Past Surgical History: Reports: Hx Breast Surgery - lumpectomy to left breast, Hx Cholecystectomy, Hx Hysterectomy, Hx Orthopedic Surgery - Immunizations Hx Diphtheria, Pertussis, Tetanus Vaccination: Yes Hx Pneumococcal Vaccination: 09/05/00 Review of Systems - Review of Systems Notes: REVIEW OF SYSTEMS: CONSTITUTIONAL : Denies fever, chills, or sweats. Denies recent illness. EENT: Denies eye, ear, throat, or mouth pain or symptoms. Denies nasal or sinus congestion or discharge. Denies throat, tongue, or mouth swelling or difficulty swallowing. CARDIOVASCULAR: Denies chest pain. Denies palpitations or racing or irregular heart beat. Denies ankle edema. RESPIRATORY: Shortness of breath difficulty breathing GASTROINTESTINAL: Denies abdominal pain or distention. Denies nausea, vomiting , or diarrhea. Denies blood in vomitus, stools, or per rectum. Denies black, tarry stools. Denies constipation. GENITOURINARY: Denies difficulty urinating, painful urination, burning, frequency, blood in urine, or discharge. FEMALE GENITOURINARY: Denies vaginal bleeding, heavy or abnormal periods, irregular periods. Denies vaginal discharge or odor. MUSCULOSKELETAL: Denies back or neck pain or stiffness. Denies joint pain or swelling. SKIN: Denies rash, lesions or sores. HEMATOLOGIC : Denies easy bruising or bleeding. LYMPHATIC: Denies swollen, enlarged glands. NEUROLOGICAL: Denies confusion or altered mental status. Denies passing out or loss of consciousness. Denies dizziness or lightheadedness. Denies headache. Denies weakness or paralysis or loss of use of either side. Denies problems with gait or speech. Denies sensory loss, numbness, or tingling. Denies seizures. PHYSICAL EXAMINATION: GENERAL: Well-appearing, well-nourished and in respiratory distress HEAD: Atraumatic, normocephalic. EYES: Pupils equal round and reactive to light, extraocular movements intact, conjunctiva are normal. ENT: Nares patent, oropharynx clear without exudates. Moist mucous membranes. NECK: Normal range of motion, supple without lymphadenopathy LUNGS: Coarse wheezing all throughout tachypneic moderate respiratory distress HEART: Tachycardic ABDOMEN: Soft, nontender, nondistended abdomen. No guarding, no rebound. No masses appreciated. Female : deferred Musculoskeletal: Normal range of motion, no pitting or edema. No cyanosis. NEUROLOGICAL: Cranial nerves grossly intact. Normal speech, normal gait. Normal sensory, motor exams PSYCH: Normal mood, normal affect. SKIN: Warm, Dry, normal turgor, no rashes or lesions noted. PSYCHIATRIC: Denies anxiety or stress. Denies depression, suicidal ideation, or homicidal ideation. ALL OTHER SYSTEMS REVIEWED AND NEGATIVE. Dictation was performed using [employer] voice recognition software Physical Exam - Vital signs Vitals: Pulse Ox 95 02/15/17 06:37 Course - Re-evaluation Re-evalutation: 02/15/17 06:47 Immediately placed on BiPAP, magnesium ordered. Patient has already received a total of 5 albuterols to ipratropium 1 more DuoNeb has been ordered I expect admission 02/15/17 08:13 Patient is doing well on BiPAP, she will be admitted to the hospitalist service to the [facility] due to critical state - Vital Signs Vital signs: Temp Pulse Resp BP Pulse Ox 15 99/75 L 98 02/15/17 07:01 02/15/17 07:01 02/15/17 07:26 - Laboratory Result Diagrams: 02/15/17 06:40 02/15/17 06:40 Laboratory results interpreted by me: 02/15/17 02/15/17 06:40 06:40 WBC 12.4 H RBC 5.29 H MCHC 31.7 L RDW 15.8 H Absolute Neutrophils 8.6 H Glucose 170 H Alkaline Phosphatase 139 H - Diagnostic Test Radiology reviewed: Image reviewed, Reports reviewed - EKG Interpretation by Me EKG shows normal: Sinus rhythm, [place], Intervals, QRS Complexes Rate: Tachycardia Critical Care Note - Critical Care Note Total time excluding time spent on procedures (mins): 30 Comments: 30 minutes of critical care time spent in direct contact evaluating and reevaluating the patient, treating symptoms, reviewing labs and studies and speaking with family and consultants excluding any procedures Discharge - Discharge Clinical Impression: Acute hypoxemic respiratory failure, Tobacco abuse COPD (chronic obstructive pulmonary disease) Qualifiers: COPD type: unspecified COPD Qualified Code(s): J44.9 - Chronic obstructive pulmonary disease, unspecified Condition: Fair Disposition: ADMITTED INPATIENT Admitting Provider: Hospitalist Unit Admitted: [facility]
--- NOTE | 2017-02-15 07:10 | RADIOLOGY REPORT (SQ) ---
EXAM DESCRIPTION: CHEST SINGLE VIEW COMPLETED DATE/TIME: 02/15/2017 7:01 am REASON FOR STUDY: sob COMPARISON: 02/12/2017. EXAM PARAMETERS: NUMBER OF VIEWS: One view. TECHNIQUE: Single frontal radiographic view of the chest acquired. RADIATION DOSE: NA LIMITATIONS: None. FINDINGS: LUNGS AND PLEURA: No opacities, masses or pneumothorax. No pleural effusion. MEDIASTINUM AND HILAR STRUCTURES: No masses. Contour normal. HEART AND VASCULAR STRUCTURES: Heart normal in size. Atherosclerosis. BONES: No acute findings. HARDWARE: Left axillary clips. OTHER: No other significant finding. IMPRESSION: NO ACUTE RADIOGRAPHIC FINDING IN THE CHEST. TECHNICAL DOCUMENTATION: JOB ID: [id number]
[2017-02-15 07:28] LABS: ABSOLUTE EOSINOPHILS # (AUTO) 0.1 10^3/uL (0.0-0.6); ABSOLUTE MONOCYTES (AUTO) 0.7 10^3/uL (0.1-1.4); ABSOLUTE NEUT (AUTO) 8.6 10^3/uL (1.7-8.2); BASOPHILS % (AUTO) 0.2 % (0-2); EOSINOPHILS % (AUTO) 0.4 % (0-6); HEMATOCRIT 45.5 % (36.0-47.0); HEMOGLOBIN 14.4 g/dL (12.0-15.5); HGB HCT DIFFERENCE -2.3; LYMPHOCYTES % (AUTO) 24.3 % (13-45); MEAN CORPUSCULAR HEMOGLOBIN 27.2 pg (27.0-33.4); MEAN CORPUSCULAR HGB CONC 31.7 g/dL (32.0-36.0); MEAN CORPUSCULAR VOLUME 86 fl (80-97); MONOCYTES % (AUTO) 5.3 % (3-13); RED BLOOD COUNT 5.29 10^6/uL (3.72-5.28); RED CELL DISTRIBUTION WIDTH 15.8 % (11.5-14.0); SEGMENTED NEUTROPHILS % (AUTO) 69.8 % (42-78); WHITE BLOOD COUNT 12.4 10^3/uL (4.0-10.5)
[2017-02-15] MEDS: MAGNESIUM SULFATE/D5W 100 ML IV SCH ×2 (07:39→08:32)
[2017-02-15 07:59] LABS: ALANINE AMINOTRANSFERASE 46 U/L (9-52); ALBUMIN 3.9 g/dL (3.5-5.0); ALKALINE PHOSPHATASE 139 U/L (38-126); ANION GAP 10 (5-19); ASPARTATE AMINO TRANSFERASE 27 U/L (14-36); BILIRUBIN,DIRECT 0.2 mg/dL (0.0-0.4); BILIRUBIN,TOTAL 0.5 mg/dL (0.2-1.3); BLOOD UREA NITROGEN 14 mg/dL (7-20); CALCIUM 8.9 mg/dL (8.4-10.2); CARBON DIOXIDE 29 mmol/L (22-30); CHLORIDE 102 mmol/L (98-107); CREATINE KINASE 62 U/L (30-135); CREATININE RESULT 0.82 mg/dL (0.52-1.25); GLUCOSE 170 mg/dL (75-110); POTASSIUM 3.6 mmol/L (3.6-5.0); SODIUM 141.2 mmol/L (137-145)
[2017-02-15 08:06] LABS: CREATINE KINASE MB 1.22 ng/mL (<4.55)
[2017-02-15 08:07] LABS: TROPONIN I < 0.012 ng/mL
[2017-02-15] MEDS ORDERED: ACETAMINOPHEN 325 MG TABLET PO PRN (09:31)
[2017-02-15] MEDS ORDERED: LEVALBUTEROL HCL NEB 1.25 MG/3 ML AMPUL NEB PRN (09:31)
[2017-02-15] MEDS ORDERED: NORMAL SALINE 1000 ML 1,000 ML IV PRN (09:31)
[2017-02-15] MEDS ORDERED: ONDANSETRON HCL INJ/PF 4 MG/2 ML SDV IV PRN (09:31)
[2017-02-15] MEDS ORDERED: DEXTROSE 50%-WATER 25 GM/50 ML DISP.SYRIN IV PRN ×2 (09:37)
[2017-02-15] MEDS ORDERED: DEXTROSE 40% GEL 15 GM TUBE PO PRN ×2 (09:37)
[2017-02-15] MEDS ORDERED: GLUCAGON,HUMAN RECOMB 1 MG INJ IM PRN (09:37)
--- NOTE | 2017-02-15 09:59 | PDOC H&P ---
History of Present Illness Admission Date/PCP: 02/15/17 08:38 Patient complains of: Shortness of breath History of Present Illness: ALEJANDRA CHENG is a 66 year old female, with history of COPD, hypertension, anxiety, brought to the emergency room because of respiratory distress. Patient was seen in the emergency room 3-4 days ago for similar complaints. Patient had shortness of breath and some wheezing with cough with minimal phlegm. Patient denies any chills or fever. Patient denies any chest congestion. She does have a lot of sinus congestion however. No nausea or vomiting, chest pain, PND orthopnea. Patient was given steroids and continue her inhalers at home. She is not getting oxygen at home. Patient's symptoms got worse last night and therefore presents to the emergency room by ambulance. Patient had several rounds of bronchodilators at home. EMS gave steroids and nebulizer as well. In the emergency room she was found to be hypoxemic with O2 saturation in the 70s. She was placed on BiPAP and her respirations improved. She was then referred for admission. Past Medical History Past Medical History: Medication reconciliation pending verification from the patient's pharmacist Cardiac Medical History: Reports: Coronary Artery Disease, Hyperlipidema, Hypertension Pulmonary Medical History: Reports: Asthma, Bronchitis, Chronic Obstructive Pulmonary Disease (COPD) Neurological Medical History: Endocrine Medical History: Reports: Diabetes Mellitus Type 2 Malignancy Medical History: Reports: Breast Cancer GI Medical History: Reports: Gastroesophageal Reflux Disease Musculoskeltal Medical History: Reports: Arthritis Psychiatric Medical History: Reports: Depression, Schizoaffective Disorder Hematology: Denies: Anemia, Sickle Cell Disease Past Surgical History Past Surgical History: Reports: Cholecystectomy, Hysterectomy, Orthopedic Surgery Denies: Amputation Social History Information Source: Patient Smoking Status: Current Every Day Smoker Frequency of Alcohol Use: None Hx Recreational Drug Use: No Drugs: None Hx Prescription Drug Abuse: No Family History Family History: Hypertension Parental Family History Reviewed: Yes Children Family History Reviewed: Yes Sibling(s) Family History Reviewed.: Yes Medication/Allergy Allergies/Adverse Reactions: Sulfa (Sulfonamide Antibiotics) Allergy (Verified 01/13/17 08:38) Review of Systems Constitutional: ABSENT: chills, fever(s), headache(s), night sweats, weight gain , weight loss Eyes: ABSENT: visual disturbances Ears: ABSENT: hearing changes Nose, Mouth, and Throat: ABSENT: mouth pain, sore throat, vertigo Cardiovascular: PRESENT: dyspnea on exertion. ABSENT: chest pain, edema, orthropnea, palpitations Respiratory: PRESENT: cough. ABSENT: hemoptysis Gastrointestinal: ABSENT: abdominal pain, constipation, diarrhea, hematemesis, hematochezia, nausea, vomiting Genitourinary: ABSENT: difficulty urinating, dysuria, hematuria Musculoskeletal: ABSENT: joint swelling Integumentary: ABSENT: rash, wounds Neurological: ABSENT: abnormal gait, abnormal speech, confusion, dizziness, focal weakness, syncope Psychiatric: PRESENT: anxiety, depression. ABSENT: homidical ideation, suicidal ideation Endocrine: ABSENT: cold intolerance, heat intolerance, polydipsia, polyuria Hematologic/Lymphatic: ABSENT: easy bleeding, easy bruising Physical Exam Vital Signs: Temp Pulse Resp BP Pulse Ox 14 99/75 L 97 02/15/17 08:55 02/15/17 07:01 02/15/17 08:55 General appearance: PRESENT: no acute distress, well-developed, well-nourished Head exam: PRESENT: atraumatic, normocephalic Eye exam: PRESENT: conjunctiva pink, EOMI, PERRLA. ABSENT: scleral icterus Ear exam: PRESENT: normal external ear exam. ABSENT: drainage Mouth exam: PRESENT: moist, neck supple Throat exam: ABSENT: post pharyngeal erythema, tonsillar erythema Neck exam: ABSENT: carotid bruit, JVD, lymphadenopathy, thyromegaly Respiratory exam: PRESENT: rhonchi - few bilateral, wheezes - mild bilateral. ABSENT: rales Cardiovascular exam: PRESENT: RRR, +S1, +S2. ABSENT: diastolic murmur, rubs, systolic murmur Pulses: PRESENT: normal dorsalis pedis pul Vascular exam: PRESENT: normal capillary refill GI/Abdominal exam: PRESENT: normal bowel sounds, soft. ABSENT: distended, guarding, mass, organolmegaly, rebound, tenderness Rectal exam: PRESENT: deferred Extremities exam: PRESENT: full ROM. ABSENT: calf tenderness, clubbing, pedal edema Neurological exam: PRESENT: alert, awake, oriented to person, oriented to place , oriented to time Psychiatric exam: PRESENT: appropriate affect, normal mood. ABSENT: homicidal ideation, suicidal ideation Skin exam: PRESENT: dry, intact, warm. ABSENT: cyanosis, rash Results Impressions: Chest X-Ray 02/15/17 06:48 IMPRESSION: NO ACUTE RADIOGRAPHIC FINDING IN THE CHEST. Assessment & Plan - Diagnosis (1) Acute hypoxemic respiratory failure Is this a current diagnosis for this admission?: Yes (2) COPD (chronic obstructive pulmonary disease) Qualifiers: COPD type: COPD with acute exacerbation Qualified Code(s): J44.1 - Chronic obstructive pulmonary disease with (acute) exacerbation Is this a current diagnosis for this admission?: Yes (3) Coronary artery disease Qualifiers: Coronary Disease-Associated Artery/Lesion type: [place] artery [place] vs. transplanted heart: [place] heart Associated angina: without angina Qualified Code(s): I25.10 - Atherosclerotic heart disease of [place] coronary artery without angina pectoris Is this a current diagnosis for this admission?: Yes (4) GERD (gastroesophageal reflux disease) Qualifiers: Esophagitis presence: without esophagitis Qualified Code(s): K21.9 - Gastro-esophageal reflux disease without esophagitis Is this a current diagnosis for this admission?: Yes (5) Schizoaffective disorder Qualifiers: Schizoaffective disorder type: unspecified Qualified Code(s): F25.9 - Schizoaffective disorder, unspecified Is this a current diagnosis for this admission?: Yes (6) Anxiety Is this a current diagnosis for this admission?: Yes (7) Diabetes Qualifiers: Diabetes mellitus type: type 2 Diabetes mellitus complication status: without complication Diabetes mellitus manager long term care insulin use: without assisted use Qualified Code(s): E11.9 - Type 2 diabetes mellitus without complications Is this a current diagnosis for this admission?: Yes (8) Hypertension Qualifiers: Hypertension type: essential hypertension Qualified Code(s): I10 - Essential (primary) hypertension Is this a current diagnosis for this admission?: Yes (9) Dyslipidemia Is this a current diagnosis for this admission?: Yes - Time Time Spent: 50 to 70 Minutes Anticipated discharge: Home Within: within 72 hours - Inpatient Certification Based on my medical assessment, after consideration of the patient's comorbidities, presenting symptoms, or acuity I expect that the services needed warrant INPATIENT care.: Yes I certify that my determination is in accordance with my understanding of Medicare's requirements for reasonable and necessary INPATIENT services [42 CFR 412.3e].: Yes Medical Necessity: Failure to Improve With Outpatient Therapy, Need Close Monitoring Due to Risk of Patient Decompensation, Need For Continuous Telemetry Monitoring - Plan Summary Plan Summary: Patient will be admitted to [facility] [place]. We will begin intravenous steroids and RTC nebulizers. Continue the BiPAP and titrate as per respiratory protocol. We will try to wean from BiPAP in the morning. DVT prophylaxis with Lovenox will be placed. I will culture the patient's sputum. Begin oral antibiotics. We will monitor WBC and temperature. Further testing depends on the initial evaluations outlined above.
[2017-02-15] MEDS ORDERED: ENOXAPARIN SODIUM INJ 40 MG/0.4 ML DISP.SYRIN SUBCUT ONE (11:00)
[2017-02-15] MEDS: LEVOFLOXACIN 750 MG TABLET PO SCH (11:04)
--- NOTE | 2017-02-15 11:04 | EKG REPORT ---
SEVERITY:- ABNORMAL ECG - SINUS RHYTHM LEFT ANTERIOR FASCICULAR BLOCK : Confirmed by: Maegan Page 15-Feb-2017 11:03:35
[2017-02-15] MEDS: METHYLPREDNISOLONE INJ 125 MG/2 ML SDV IV SCH ×2 (11:05→17:49)
[2017-02-15] MEDS: DOCUSATE SODIUM 100 MG CAPSULE PO SCH ×2 (11:05→17:49)
[2017-02-15 11:42] LABS: APPEARANCE,URINE CLEAR; BILIRUBIN,URINE NEGATIVE (NEGATIVE); GLUCOSE, URINE NEGATIVE (NEGATIVE); KETONES,URINE NEGATIVE (NEGATIVE); LEUKOCYTE ESTERASE,URINE NEGATIVE (NEGATIVE); NITRITE,URINE NEGATIVE (NEGATIVE); PROTEIN,URINE 30 mg/dL (NEGATIVE); URINE SPECIFIC GRAVITY 1.005; UROBILINOGEN,URINE NEGATIVE mg/dL (<2.0)
[2017-02-15] MEDS: ALPRAZOLAM 0.25 MG TABLET PO PRN ×2 (12:52→18:25)
[2017-02-15] MEDS ORDERED: NICOTINE 21 MG/24 HR PATCH.TD24 TD PRN (13:19)
[2017-02-15] MEDS: IPRATROPIUM/ALBUTEROL 0.5-2.5 MG/3 ML AMPUL NEB SCH ×2 (13:34→19:25)
[2017-02-15] MEDS: LORAZEPAM INJ 2 MG/1 ML VIAL IV PRN (15:52)
[2017-02-15] MEDS: INSULIN REG, HUMAN 100 UNIT/ML 3 ML VIAL (PYX) SUBCUT PRN (16:27)
[2017-02-15] MEDS: LANSOPRAZOLE 30 MG TAB.RAP.DR PO SCH (16:27)
[2017-02-16] MEDS: LORAZEPAM INJ 2 MG/1 ML VIAL IV PRN ×2 (02:00→10:52)
[2017-02-16] MEDS: METHYLPREDNISOLONE INJ 125 MG/2 ML SDV IV SCH ×3 (02:00→12:29)
[2017-02-16] MEDS: ALPRAZOLAM 0.25 MG TABLET PO PRN ×2 (02:00→12:29)
[2017-02-16] MEDS: IPRATROPIUM/ALBUTEROL 0.5-2.5 MG/3 ML AMPUL NEB SCH ×3 (02:49→13:57)
[2017-02-16] MEDS: LANSOPRAZOLE 30 MG TAB.RAP.DR PO SCH (06:07)
[2017-02-16 06:38] LABS: ANION GAP 8 (5-19); BLOOD UREA NITROGEN 13 mg/dL (7-20); CALCIUM 8.7 mg/dL (8.4-10.2); CARBON DIOXIDE 26 mmol/L (22-30); CHLORIDE 102 mmol/L (98-107); CREATININE RESULT 0.59 mg/dL (0.52-1.25); GLUCOSE 175 mg/dL (75-110); SODIUM 135.7 mmol/L (137-145)
[2017-02-16 06:47] LABS: MEAN CORPUSCULAR HEMOGLOBIN 27.2 pg (27.0-33.4); MEAN CORPUSCULAR HGB CONC 31.8 g/dL (32.0-36.0); MEAN CORPUSCULAR VOLUME 86 fl (80-97); POTASSIUM 4.7 mmol/L (3.6-5.0); RED BLOOD COUNT 5.14 10^6/uL (3.72-5.28); RED CELL DISTRIBUTION WIDTH 16.1 % (11.5-14.0)
[2017-02-16 07:05] LABS: BASOPHILS % (MANUAL) 0 % (0-2); EOSINOPHILS % (MANUAL) 0 % (0-6); LYMPHOCYTES % (MANUAL) 4 % (13-45); TOTAL CELLS COUNTED 100
[2017-02-16 07:06] LABS: ANISOCYTOSIS 1+; HYPOCHROMASIA SLIGHT; TOXIC GRANULATION SLIGHT; TOXIC VACUOLATION PRESENT
[2017-02-16] MEDS ORDERED: ENOXAPARIN SODIUM INJ 40 MG/0.4 ML DISP.SYRIN SUBCUT SCH (08:00)
[2017-02-16] MEDS: INSULIN REG, HUMAN 100 UNIT/ML 3 ML VIAL (PYX) SUBCUT PRN ×2 (08:53→12:39)
[2017-02-16] MEDS: LEVOFLOXACIN 750 MG TABLET PO SCH (10:51)
[2017-02-16] MEDS: DOCUSATE SODIUM 100 MG CAPSULE PO SCH (10:52)
--- NOTE | 2017-02-16 15:25 | PDOC DISCHARGE SUMMARY ---
General - Admit/Disc Date/PCP Admission Date/Primary Care Provider: 02/15/17 09:31 Discharge Date: 02/16/17 - Discharge Diagnosis (1) Acute hypoxemic respiratory failure Is this a current diagnosis for this admission?: Yes (2) COPD (chronic obstructive pulmonary disease) Is this a current diagnosis for this admission?: Yes (3) Coronary artery disease Is this a current diagnosis for this admission?: Yes (4) GERD (gastroesophageal reflux disease) Is this a current diagnosis for this admission?: Yes (5) Schizoaffective disorder Is this a current diagnosis for this admission?: Yes (6) Anxiety Is this a current diagnosis for this admission?: Yes (7) Diabetes Is this a current diagnosis for this admission?: Yes (8) Hypertension Is this a current diagnosis for this admission?: Yes (9) Dyslipidemia Is this a current diagnosis for this admission?: Yes - Additional Information Resuscitation Status: Full Code Discharge Diet: Cardiac - Low-fat low-salt, Diabetic - No concentrated sweets Discharge Activity: Activity As Tolerated, Balance Activity w/Rest, Slowly Increase Activity Home Medications: Albuterol Sulfate [Ventolin HFA MDI 18 GM] 1 puff IH Q4H PRN 02/15/17 Aspirin [Aspirin 81 mg Chewable Tablet] 81 mg PO DAILY 02/15/17 Atorvastatin Calcium [Lipitor 40 mg Tablet] 40 mg PO QHS 02/15/17 Carvedilol [Coreg 3.125 mg Tablet] 3.125 mg PO Q12 02/15/17 Fluoxetine HCl [Prozac 20 mg Capsule] 20 mg PO DAILY 02/15/17 Fluphenazine Decanoate 25 mg IJ [id number] 02/15/17 Fluphenazine HCl 10 mg PO DAILY 02/15/17 Furosemide [Lasix] 40 mg PO DAILY 02/15/17 Isosorbide Mononitrate [Imdur 30 mg Tablet.er] 30 mg PO DAILY 02/15/17 Linagliptin [Tradjenta] 5 mg PO DAILY 02/15/17 Lisinopril [Prinivil 5 mg Tablet] 5 mg PO DAILY 02/15/17 Lorazepam [Ativan 0.5 mg Tablet] 0.5 mg PO BIDP PRN 02/15/17 Potassium Chloride [Klor-Con 10 Meq Tablet.sa] 20 meq PO DAILY 02/15/17 Trihexyphenidyl HCl 2 mg PO BID 02/15/17 Ipratropium/Albuterol Sulfate [Combivent Respimat 4 gm Mdi] 1 puff IH Q4 #1 aer.w.adap 02/16/17 Levofloxacin [Levaquin 750 mg Tablet] 750 mg PO DAILY #6 tablet 02/16/17 Prednisone [Sterapred Ds] 1 pkg PO ASDIR PRN 12 Days 02/16/17 Additional Information: Return to the emergency room if symptoms recurs or worsens History of Present Illness Patient complains of: Shortness of breath History of Present Illness: ALEJANDRA CHENG is a 66 year old female, with history of COPD, hypertension, anxiety, brought to the emergency room because of respiratory distress. Patient was seen in the emergency room 3-4 days ago for similar complaints. Patient had shortness of breath and some wheezing with cough with minimal phlegm. Patient denies any chills or fever. Patient denies any chest congestion. She does have a lot of sinus congestion however. No nausea or vomiting, chest pain, PND orthopnea. Patient was given steroids and continue her inhalers at home. She is not getting oxygen at home. Patient's symptoms got worse last night and therefore presents to the emergency room by ambulance. Patient had several rounds of bronchodilators at home. EMS gave steroids and nebulizer as well. In the emergency room she was found to be hypoxemic with O2 saturation in the 70s. She was placed on BiPAP and her respirations improved. She was then referred for admission. Hospital Course Hospital Course: The patient was admitted to [facility]. The patient was kept on BiPAP. Later on the day of admission the patient significantly improved and wanting to sign out AGAINST MEDICAL ADVICE. After talking to the patient she agreed to stay for another 24 hours. She was started on intravenous steroids and [id number] nebulizers. Patient continues to improve the following morning. Empiric oral antibiotic was likewise started. After 24 hours the patient is adamant about going home. Room air oxygenation at rest and on ambulation was greater than 90% . The patient was therefore discharged home with instructions to see her primary care physician in 2-5 days. Likewise she was instructed to return to the emergency room if symptoms recur. is at bedside and agreeable with the plan. Physical Exam Vital Signs: Temp Pulse Resp BP Pulse Ox 97.9 F 101 H 18 109/79 100 06/14/17 11:11 02/16/17 11:11 02/16/17 11:11 02/16/17 11:11 02/16/17 11:11 Intake & Output 02/15/17 02/16/17 02/17/17 06:59 06:59 06:59 Intake Total 600 275 Balance 600 275 Weight 80.1 kg General appearance: PRESENT: no acute distress, cooperative, obese Head exam: PRESENT: normocephalic Eye exam: PRESENT: EOMI Mouth exam: PRESENT: moist, neck supple Neck exam: ABSENT: JVD Respiratory exam: PRESENT: clear to auscultation [place], rhonchi - few bilateral. ABSENT: wheezes Cardiovascular exam: PRESENT: RRR. ABSENT: gallop GI/Abdominal exam: PRESENT: normal bowel sounds, soft. ABSENT: distended, tenderness Extremities exam: PRESENT: other - Trace lower extremity edema Neurological exam: PRESENT: alert, awake, oriented to situation Skin exam: PRESENT: dry, warm. ABSENT: cyanosis Results Laboratory Results: 02/16/17 05:56 02/16/17 05:56 02/16/17 02/16/17 05:56 05:56 WBC 16.0 H RBC 5.14 Hgb 14.0 Hct 44.0 MCV 86 MCH 27.2 MCHC 31.8 L RDW 16.1 H Plt Count 329 Seg Neutrophils % Not Reportable Lymphocytes % Not Reportable Monocytes % Not Reportable Eosinophils % Not Reportable Basophils % Not Reportable Absolute Neutrophils Not Reportable Absolute Lymphocytes Not Reportable Absolute Monocytes Not Reportable Absolute Eosinophils Not Reportable Absolute Basophils Not Reportable Sodium 135.7 L Potassium 4.7 D Chloride 102 Carbon Dioxide 26 Anion Gap 8 BUN 13 Creatinine 0.59 Est GFR ( Amer) > 60 Est GFR (Non-Af Amer) > 60 Glucose 175 H Calcium 8.7 Impressions: Chest X-Ray 02/15/17 06:48 IMPRESSION: NO ACUTE RADIOGRAPHIC FINDING IN THE CHEST. Qualifiers [place] BEING DISCHARGED WITH ANY OF THE FOLLOWING DIAGNOSIS?: No Plan Discharge Plan: Follow-up with primary care physician in 2-5 days. Time Spent: Less than 30 Minutes
[2017-02-16 16:06] VITALS: BP 130/75
== END 2017-02-16 16:30 | disposition home health service (06) | DRG 190 ==
LOC: ER 06:30 → UNDOADMIN 08:38 → EH 08:38 → 3S 14:58
PROC: 5A09457 Assistance with Respiratory Ventilation, 24-96 Consecutive Hours, Continuous Positive Airway Pressure (ICD-10-PCS; principal; 2017-02-15)
DX: J44.1 Chronic obstructive pulmonary disease with (acute) exacerbation (principal); J96.01 Acute respiratory failure with hypoxia; I10 Essential (primary) hypertension; F41.9 Anxiety disorder, unspecified; E78.5 Hyperlipidemia, unspecified; E11.9 Type 2 diabetes mellitus without complications; K21.9 Gastro-esophageal reflux disease without esophagitis; F17.200 Nicotine dependence, unspecified, uncomplicated; M19.90 Unspecified osteoarthritis, unspecified site; F32.9 Major depressive disorder, single episode, unspecified; F25.9 Schizoaffective disorder, unspecified; Z85.3 Personal history of malignant neoplasm of breast; Z90.710 Acquired absence of both cervix and uterus; Z90.49 Acquired absence of other specified parts of digestive tract; Z88.2 Allergy status to sulfonamides; Z82.49 Family history of ischemic heart disease and other diseases of the circulatory system; Z79.51 Long term (current) use of inhaled steroids
CPT/HCPCS: 36415; 71010; 80048; 80053; 81001; 82550; 82553; 82803; 82962; 83735; 83880; 84484; 85025; 93005; 93010; 94640; 94660; 96365; 99291; J1650; J1815; J2060; J2930; J3475; J3490; J7030; J7620

== ENCOUNTER 2017-02-24 21:38 | Emergency (ER) | payer MEDICARE ==
[2017-02-24] MEDS ORDERED: KETAMINE HCL INJ 500 MG/10 ML VIAL IV ONE (21:45)
[2017-02-24] MEDS ORDERED: MAGNESIUM SULFATE/D5W 100 ML IV SCH (21:45)
[2017-02-24] MEDS ORDERED: IPRATROPIUM/ALBUTEROL 0.5-2.5 MG/3 ML AMPUL NEB ONE (21:45)
--- NOTE | 2017-02-24 21:50 | ER Document Report ---
ED General - General Chief Complaint: Cardiac Arrest Stated Complaint: POST ARREST Time Seen by Provider: 02/24/17 21:38 Mode of Arrival: Medic Information source: Emergency Med Personnel, [facility] Records Cannot obtain history due to: Intubated Notes: 66-year-old female history of asthma COPD who was recently admitted for hypoxemia presented in respiratory distress cardiac arrest. Patient called EMS with complaints of shortness of breath, when EMS arrived patient was found to have agonal respirations without pulse, 2 rounds of epinephrine and bicarb were given patient was intubated and the dopamine drip was started Patient brought in with improving vital signs TRAVEL OUTSIDE OF THE [place] IN LAST 30 DAYS: No - HPI Onset: Just prior to arrival Onset/Duration: Sudden Quality of pain: No pain Severity: Severe Pain Level: Denies Associated symptoms: Shortness of breath, Other Exacerbated by: Denies Relieved by: Denies Similar symptoms previously: Yes Recently seen / treated by doctor: Yes - Related Data Allergies/Adverse Reactions: Sulfa (Sulfonamide Antibiotics) Allergy (Verified 01/13/17 08:38) Past Medical History - General Cannot obtain history due to: Unstable vital signs - Social History Smoking Status: Former Smoker Cigarette use (# per day): No Chew tobacco use (# tins/day): No Smoking Education Provided: No Family History: Hypertension - Past Medical History Cardiac Medical History: Reports: Hx Coronary Artery Disease, Hx Hypercholesterolemia, Hx Hypertension Pulmonary Medical History: Reports: Hx Asthma, Hx Bronchitis, Hx COPD Neurological Medical History: Endocrine Medical History: Reports: Hx Diabetes Mellitus Type 2 Renal/ Medical History: Denies: Hx Peritoneal Dialysis Malignancy Medical History: Reports: Hx Breast Cancer GI Medical History: Reports: Hx Gastroesophageal Reflux Disease Musculoskeltal Medical History: Reports Hx Arthritis Psychiatric Medical History: Reports: Hx Anxiety, Hx Depression, Hx Schizoaffective Disorder, Hx Schizophrenia Infectious Medical History: Past Surgical History: Reports: Hx Breast Surgery - lumpectomy to left breast, Hx Cholecystectomy, Hx Hysterectomy, Hx Orthopedic Surgery - Immunizations Hx Diphtheria, Pertussis, Tetanus Vaccination: Yes Hx Pneumococcal Vaccination: 09/05/00 Review of Systems - Review of Systems Notes: PHYSICAL EXAMINATION: GENERAL: Ill-appearing female significant distress HEAD: Atraumatic, normocephalic. EYES: Pupils equal round and reactive to light, extraocular movements intact, conjunctiva are normal. ENT: Nares patent, oropharynx clear without exudates. Moist mucous membranes. NECK: Normal range of motion, supple without lymphadenopathy LUNGS: Intubated breath sounds noted bilateral HEART: Tachycardic ABDOMEN: Soft, nontender, nondistended abdomen. No guarding, no rebound. No masses appreciated. Female : deferred Musculoskeletal: No cyanosis. NEUROLOGICAL: GCS 3 SKIN: Warm, Dry, normal turgor, no rashes or lesions noted. -: Yes ROS unobtainable due to patient's medical condition Physical Exam - Vital signs Vitals: Pulse Ox 100 02/24/17 21:45 Course - Re-evaluation Re-evalutation: 02/24/17 21:46 taylor paged for transfer 02/24/17 21:49 dopamine drip stopped, will start ketamine due to asthma exacerbation, she was checked good breath sounds bilateral with good color change. hypothermia protocol started 02/24/17 21:50 02/24/17 21:51 Dr Roderick Carpio called back will accept transfer 02/24/17 21:58 02/25/17 00:01 Patient reevaluated multiple times stable at this time awaiting transport to take him - Vital Signs Vital signs: Temp Pulse Resp BP Pulse Ox 100 02/24/17 21:45 - Laboratory Result Diagrams: 02/24/17 21:58 02/24/17 21:58 Laboratory results interpreted by me: 02/24/17 02/24/17 02/24/17 21:58 21:58 23:25 WBC 21.7 H RBC 5.62 H Hct 49.1 H MCHC 30.9 L RDW 16.4 H Seg Neuts % (Manual) 88 H Lymphocytes % (Manual) 8 L Abs Neuts (Manual) 19.1 H Carbonic Acid 1.63 H ABG pCO2 54.1 H ABG HCO3 29.7 H ABG Total CO2 31.3 H Potassium 5.1 H Chloride 93 L Carbon Dioxide 21 L Anion Gap 23 H Creatinine 1.32 H Est GFR ( Amer) 49 L Est GFR (Non-Af Amer) 40 L Glucose 240 H Direct Bilirubin 0.5 H AST 147 H ALT 121 H Alkaline Phosphatase 175 H Critical Care Note - Critical Care Note Total time excluding time spent on procedures (mins): 34 Comments: 34 minutes of critical care time spent in direct contact evaluating and reevaluating the patient, treating symptoms, reviewing labs and studies and speaking with family and consultants excluding any procedures Discharge - Discharge Clinical Impression: Cardiac arrest Respiratory failure Qualifiers: Chronicity: acute Respiratory failure complication: unspecified whether with hypoxia or hypercapnia Qualified Code(s): J96.00 - Acute respiratory failure, unspecified whether with hypoxia or hypercapnia COPD (chronic obstructive pulmonary disease) Qualifiers: COPD type: COPD with acute exacerbation Qualified Code(s): J44.1 - Chronic obstructive pulmonary disease with (acute) exacerbation Condition: Critical Disposition: [facility]
[2017-02-24 22:12] LABS: HEMATOCRIT 49.1 % (36.0-47.0); HEMOGLOBIN 15.2 g/dL (12.0-15.5); HGB HCT DIFFERENCE -3.5; MEAN CORPUSCULAR HGB CONC 30.9 g/dL (32.0-36.0); MEAN CORPUSCULAR VOLUME 87 fl (80-97); RED BLOOD COUNT 5.62 10^6/uL (3.72-5.28); RED CELL DISTRIBUTION WIDTH 16.4 % (11.5-14.0); WHITE BLOOD COUNT 21.7 10^3/uL (4.0-10.5)
--- NOTE | 2017-02-24 22:13 | RADIOLOGY REPORT (SQ) ---
EXAM DESCRIPTION: CHEST SINGLE VIEW COMPLETED DATE/TIME: 02/24/2017 9:58 pm REASON FOR STUDY: POST ARREST COMPARISON: 02/15/2017 EXAM PARAMETERS: NUMBER OF VIEWS: One view. TECHNIQUE: Single frontal radiographic view of the chest acquired. RADIATION DOSE: NA LIMITATIONS: None. FINDINGS: LUNGS AND PLEURA: No opacities, masses or pneumothorax. No pleural effusion. MEDIASTINUM AND HILAR STRUCTURES: No masses. Contour normal. HEART AND VASCULAR STRUCTURES: Heart normal in size. Normal vasculature. BONES: No acute findings. HARDWARE: Endotracheal tube is identified with its tip just distal to the thoracic inlet. NG tube is seen in course to the abdomen. OTHER: No other significant finding. IMPRESSION: Endotracheal tube in appropriate position. No acute consolidations are identified. Oth er findings as noted above TECHNICAL DOCUMENTATION: JOB ID: [id number]
[2017-02-24 22:24] LABS: BASOPHILS % (MANUAL) 0 % (0-2); EOSINOPHILS % (MANUAL) 0 % (0-6); LYMPHOCYTES % (MANUAL) 8 % (13-45); TOTAL CELLS COUNTED 100
[2017-02-24 22:26] LABS: ALANINE AMINOTRANSFERASE 121 U/L (9-52); ALBUMIN 4.2 g/dL (3.5-5.0); ALKALINE PHOSPHATASE 175 U/L (38-126); ASPARTATE AMINO TRANSFERASE 147 U/L (14-36); BILIRUBIN,DIRECT 0.5 mg/dL (0.0-0.4); BILIRUBIN,TOTAL 0.8 mg/dL (0.2-1.3); BLOOD UREA NITROGEN 19 mg/dL (7-20); CALCIUM 9.4 mg/dL (8.4-10.2); CREATINE KINASE 93 U/L (30-135); CREATININE RESULT 1.32 mg/dL (0.52-1.25); GLUCOSE 240 mg/dL (75-110); TOTAL PROTEIN 6.8 g/dL (6.3-8.2)
[2017-02-24 22:27] LABS: ANISOCYTOSIS 1+; HYPOCHROMASIA SLIGHT; PLATELET CLUMPS PRESENT; POIKILOCYTOSIS SLIGHT; POLYCHROMASIA SLIGHT; TARGET CELLS SLIGHT; TOXIC GRANULATION SLIGHT
[2017-02-24 22:35] LABS: CARBON DIOXIDE 21 mmol/L (22-30); CHLORIDE 93 mmol/L (98-107); POTASSIUM 5.1 mmol/L (3.6-5.0); SODIUM 137.3 mmol/L (137-145)
[2017-02-24 22:39] LABS: ANION GAP 23 (5-19)
[2017-02-24 22:44] LABS: CREATINE KINASE MB 2.02 ng/mL (<4.55)
[2017-02-24 22:46] LABS: TROPONIN I < 0.012 ng/mL
[2017-02-24 23:36] LABS: ARTERIAL BLOOD BASE EXCESS 2.9 mmol/L; ARTERIAL BLOOD O2 SATURATION 97.1 % (94-98)
== END 2017-02-24 23:56 | disposition short-term general hospital (02) ==
LOC: ER 21:38
DX: I46.9 Cardiac arrest, cause unspecified (principal); J96.00 Acute respiratory failure, unspecified whether with hypoxia or hypercapnia; J44.1 Chronic obstructive pulmonary disease with (acute) exacerbation; I25.10 Atherosclerotic heart disease of native coronary artery without angina pectoris; I10 Essential (primary) hypertension; E11.9 Type 2 diabetes mellitus without complications; Z88.2 Allergy status to sulfonamides; Z87.891 Personal history of nicotine dependence
CPT/HCPCS: 36415; 51702; 71010; 80053; 82550; 82553; 82803; 84484; 85025; 96365; 99291